=== PATIENT | female | born 1950 | race Caucasian/White ===

== ENCOUNTER 2016-08-24 16:51 | Emergency (ER) | payer MEDICARE ==
[~2016-08-24] VITALS: Ht 152.4 cm; Wt 55.8 kg
[2016-08-24] MEDS ORDERED: LORazepam INJ 2 MG/ML (ATIVAN) VIAL ONE (16:53)
[2016-08-24] MEDS ORDERED: PRAM0.252 PO (17:00)
[2016-08-24] MEDS ORDERED: FLUT1BLS IH (17:00)
[2016-08-24] MEDS ORDERED: OXYC-202 PO (17:00)
[2016-08-24] MEDS ORDERED: RANI150T15 PO (17:00)
[2016-08-24] MEDS ORDERED: FOLI0.8T PO (17:00)
[2016-08-24] MEDS ORDERED: LORA2VIA29 IJ (17:00)
[2016-08-24] MEDS ORDERED: ASPI-932 PO (17:00)
[2016-08-24] MEDS ORDERED: METH2.5T PO (17:00)
[2016-08-24] MEDS ORDERED: CARB300C2 PO (17:00)
[2016-08-24] MEDS ORDERED: LISI2.5T PO (17:00)
[2016-08-24] MEDS ORDERED: WARF-48 PO (17:00)
[2016-08-24] MEDS ORDERED: TRAZ150T72 PO (17:00)
[2016-08-24] MEDS ORDERED: IPRA3AMP IH (17:00)
[2016-08-24] MEDS ORDERED: DEXAMETHASONE PF 10 MG/ML (DECADRON) VIAL ONE (17:04)
[2016-08-24] MEDS ORDERED: RT-ALBUTEROL/IPRATROPIUM 3 ML (DUONEB) VIAL ONE (17:04)
[2016-08-24] MEDS ORDERED: DEXAMETHASONE PF 10 MG/ML (DECADRON) VIAL INH STA (17:11)
[2016-08-24] MEDS ORDERED: DEXAMETHASONE 4 MG/ML SDV (DECADRON) IH ONE (17:15)
[2016-08-24] MEDS ORDERED: RT-ALBUTEROL/IPRATROPIUM 3 ML (DUONEB) VIAL INH ONE (17:15)
[2016-08-24] MEDS ORDERED: LORazepam INJ 2 MG/ML (ATIVAN) VIAL IVP ONE (17:15)
[2016-08-24] MEDS ORDERED: methylPREDNISolone 125 MG (Solu-MEDROL) VIAL IVP ONE (17:15)
--- NOTE | 2016-08-24 17:19 | ED Neurological Problem ---
General Chief Complaint: Neurological Problems Stated Complaint: SYNCOPE Nursing Triage Note: Patient had outpatient CT, after patient had a seizure and was lowered to floor by CT staff. patient lifted off floor into ER cot and transported to ED room 7. patient alert and talking on arrival of ER staff Nursing Sepsis Screen: No Definite Risk Source: spouse Exam Limitations: other (PT WITH SEIZURE ACTIVITY/POST-ICTAL) History of Present Illness Time seen by provider: 16:55 Initial Comments PT WAS IN XRAY DEPT, HAD JUST COMPLETED CT CHEST ANGIOGRAM FOR ONGOING PROBLEMS BREATHING--PT WITH COPD AND ARTIFICIAL HEART VALVE AND IS ON HOME O2 AT 2L/NC CONTINUOUSLY. ' AFTER CT WAS DONE, AND WAS BEING ESCORTED OUT OF CT ROOM, PT HAD A SEIZURE-- LASTED 1 MINUTE OR LESS--PT WAS ASSISTED TO THE FLOOR BY RADIOLOGY STAFF, AND NO INJURY OCCURRED PT HAS HAD IV CONTRAST BEFORE TODAY AND NOT HAD ANY PROBLEMS PT HAS A KNOWN SEIZURE DISORDER-- STATES LAST SEIZURE WAS IN MAY OR JUNE OF THIS YEAR. "HAD A BUNCH OF THEM THIS SPRING" AND WAS HOSPITALIZED FOR THEM AT [facility]. HE REPORTS THAT SHE HAD LOW CARBAMAZEPINE LEVELS AND DOSE WAS IN CREASED AND HAS NOT HAD ANY PROBLEMS SINCE THEN. HE REPORTS THAT THIS IS EXACTLY THE SAME HER REGULAR SEIZURES HE STATES THEY SEEM TO BE TRIGGERED BY STRESS. PT HAS BEEN STRESSED TODAY--HAD TO WAIT IN WAITING ROOM FOR CT, WAS GETTING ANXIOUS ABOUT WAITING, WANTING TO LEAVE AND NOT DO TEST, ETC. PT HAD HER FIRST VISIT WITH DR. SHELTON TODAY FOR COPD, HE GAVE HER A STEROID SHOT IN THE OFFICE AND GAVE PT RX FOR PREDNISONE, AND ORDERED CT CHEST ANGIOGRAM ER STAFF WAS CALLED TO ASSIST WITH PT, AND PT BROUGHT FROM XRAY DEPT TO ER BY ER STAFF PT WITH AUDIBLE EXPIRATORY WHEEZING--LAST NEB TREATMENT WAS 11:00 AM TODAY 1657--PT HAD A 30 SECOND SEIZURE--GENERALIZED, MOSTLY TONIC, MILDLY CLONIC SEIZURE. NO DROP IN O2 SAT PT TALKING AND ANSWERING A FEW QUESTIONS SHORTLY AFTER SEIZURE STOPPED, BUT SOMEWHAT CONFUSED TO PLACE, TIME, SITUATION. NO INCONTINENCE. REPORTS THAT PT HAD NOT EATEN LUNCH TODAY DUE TO DR. THOMAS PCP: 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 BUT NEITHER SERVICE IS OFFERED THERE ANYMORE,AND HAVE NOT ATTEMPTED TO ESTABLISH WITH NEW MOBILITY SCOOTER REPAIRER AT ALL, AND ONLY NOW ARE ESTABLISHING WITH NEW TELEPHONE LINES REPAIRER Allergies and Home Medications Allergies Coded Allergies: Latex, Natural Rubber (Verified Allergy, Unknown, 08/24/16) Penicillins (Verified Allergy, Unknown, 08/24/16) butorphanol (Verified Allergy, Unknown, 08/24/16) cefotaxime (Verified Allergy, Unknown, 08/24/16) diazepam (Verified Allergy, Unknown, 08/24/16) doxycycline (Verified Allergy, Unknown, 08/24/16) levofloxacin (Verified Allergy, Unknown, 08/24/16) sulfamethoxazole (Verified Allergy, Unknown, 08/24/16) trimethoprim (Verified Allergy, Unknown, 08/24/16) Home Medications Aspirin 325 Mg Tablet.dr, 325 MG PO, (Reported) Carbamazepine 300 Mg Cpmp.12hr, 300 MG PO, (Reported) Fluticasone/Vilanterol 1 Each Blst.w.dev, 1 EACH IH, (Reported) Folic Acid 0.8 Mg Tablet, 0.8 MG PO, (Reported) Ipratropium/Albuterol Sulfate 3 Ml Ampul.neb, 3 ML IH Q4H PRN for SHORTNESS OF BREATH, (Reported) Lisinopril 2.5 Mg Tablet, 2.5 MG PO DAILY, (Reported) Lorazepam 2 Mg/1 Ml Vial, 2 MG IJ, (Reported) Methotrexate Sodium 2.5 Mg Tablet, 2.5 MG PO, (Reported) Oxycodone HCl/Acetaminophen 1 Each Tablet, 1 EACH PO, (Reported) Pramipexole Di-HCl 0.25 Mg Tablet, 0.25 MG PO, (Reported) Ranitidine HCl 150 Mg Tablet, 150 MG PO, (Reported) Trazodone HCl 150 Mg Tablet, 150 MG PO, (Reported) Warfarin Sodium 5 Mg Tablet, 5 MG PO, (Reported) Constitutional: no symptoms reported Respiratory: see HPI, other (ONGOING PROBLEMS WITH BREATHING) Cardiovascular: no symptoms reported Musculoskeletal: no symptoms reported Psychiatric/Neurological: See HPI, Anxiety, Tonic Clonic Seizures Past Loylzun-Aaqnca-Cnxjzj Hx Patient Social History Alcohol Use: Denies Use Recreational Drug Use: No Smoking Status: Current Everyday Smoker (1 PPD) Type Used: Cigarettes Recent Foreign Travel: No Contact w/Someone Who Travel: No Recent Infectious Disease Expo: No Surgeries HX Surgeries: Yes (MITRAL VALVE REPLACEMENT; BILATERAL SHOULDER REPLACEMENT) Surgeries: Appendectomy, Cardiac, Gallbladder, Joint Replacement, Orthopedic, Valve Replacement Respiratory Hx Respiratory Disorders: Yes Respiratory Disorders: COPD Cardiovascular Hx Cardiac Disorders: Yes Cardiac Disorders: Hypertension Neurological Hx Neurological Disorders: Yes Neurological Disorders: Parkinson's Disease, Seizure Disorder 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 System : No 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 Genitourinary Hx Genitourinary Disorders: No Gastrointestinal Hx Gastrointestinal Disorders: Yes Gastrointestinal Disorders: Gastroesophageal Reflux Musculoskeletal Hx Musculoskeletal Disorders: Yes Musculoskeletal Disorders: Rheumatoid Arthritis Endocrine Hx Endocrine Disorders: No HEENT HX ENT Disorders: No Cancer Hx Cancer: No Psychosocial Hx Psychiatric Problems: Yes Behavioral Health Disorders: Sleep Difficulties, Anxiety Integumentary HX Skin/Integumentary Disorder: No Blood Transfusions Hx Blood Disorders: No Physical Exam Vital Signs Vital Sign - Last 12Hours 08/24/16 08/24/16 16:53 17:13 Temp 98.2 Pulse 84 Resp 14 B/P (MAP) 163/65 Pulse Ox 100 O2 Delivery Nasal Cannula O2 Flow Rate 2.00 Capillary Refill : Less Than 3 Seconds General Appearance: other (PT POST-ICTAL, DROWSY AND CONFUSED, BUT TALKING. SHORTLY AFTER ARRIVAL, PT HAD GENERALIZED TONIC-CLONIC SEIZURE, LASTING 30 SECONDS. ) HEENT: PERRL/EOMI Respiratory: respiratory distress (MILD), other (AUDIBLE EXPIRATORY WHEEZING) Cardiovascular: regular rate, rhythm, other (MECHANICAL VALVULAR CLICK) Gastrointestinal: non tender, soft Extremities: no pedal edema, normal capillary refill Neurologic/Psychiatric: other ( ABOVE--SEIZURE SHORTLY AFTER ARRIVAL. WHEN PT MORE RESPONSIVE AFTER BEING POST-ICTAL, SHE IS NEUROLOGICALLY INTACT) Crainal Nerves: normal speech, PERRL Motor/Sensory: no motor deficit, no sensory deficit Skin: normal color, warm/dry Progress/Results/Core Measures Results/Orders Lab Results Laboratory Tests Test 08/24/16 17:40 Range/Units White Blood Count 5.5 4.3-11.0 10^3/uL Red Blood Count 3.43 L 4.35-5.85 10^6/uL Hemoglobin 12.0 11.5-16.0 G/DL Hematocrit 36 35-52 % Mean Corpuscular Volume 106 H 80-99 FL Mean Corpuscular Hemoglobin 35 H 25-34 PG Mean Corpuscular Hemoglobin Concent 33 32-36 G/DL Red Cell Distribution Width 13.4 10.0-14.5 % Platelet Count 202 130-400 10^3/uL Mean Platelet Volume 9.6 7.4-10.4 FL Neutrophils (%) (Auto) 67 42-75 % Lymphocytes (%) (Auto) 20 12-44 % Monocytes (%) (Auto) 9 0-12 % Eosinophils (%) (Auto) 3 0-10 % Basophils (%) (Auto) 0 0-10 % Neutrophils # (Auto) 3.7 1.8-7.8 X 10^3 Lymphocytes # (Auto) 1.1 1.0-4.0 X 10^3 Monocytes # (Auto) 0.5 0.0-1.0 X 10^3 Eosinophils # (Auto) 0.2 0.0-0.3 10^3/uL Basophils # (Auto) 0.0 0.0-0.1 10^3/uL Prothrombin Time 22.3 H 12.2-14.7 SEC INR Comment 2.0 H 0.8-1.4 Activated Partial Thromboplast Time 45 H 24-35 SEC Sodium Level 139 135-145 MMOL/L Potassium Level 4.1 3.6-5.0 MMOL/L Chloride Level 102 98-107 MMOL/L Carbon Dioxide Level 26 21-32 MMOL/L Anion Gap 11 5-14 MMOL/L Blood Urea Nitrogen 29 H 7-18 MG/DL Creatinine 0.76 0.60-1.30 MG/DL Estimat Glomerular Filtration Rate > 60 BUN/Creatinine Ratio 38 Glucose Level 89 70-105 MG/DL Calcium Level 9.1 8.5-10.1 MG/DL Magnesium Level 1.6 L 1.8-2.4 MG/DL Total Bilirubin 0.2 0.1-1.0 MG/DL Aspartate Amino Transf (AST/SGOT) 27 5-34 U/L Alanine Aminotransferase (ALT/SGPT) 28 0-55 U/L Alkaline Phosphatase 96 40-136 U/L Total Creatine Kinase 163 29-168 U/L Total Protein 6.7 6.4-8.2 GM/DL Albumin 3.9 3.2-4.5 GM/DL TSH [place] Testing 1.19 0.35-4.94 UIU/ML Carbamazepine (Tegretol) Level 9.3 4.0-12.0 UG/ML My Orders Orders - GAUTAMBREANAA K DO Lorazepam Injection (Ativan Injection) (08/24/16 16:53) Methylprednisolone Sod Succ (Solu-Medrol (08/24/16 17:15) Lorazepam Injection (Ativan Injection) (08/24/16 17:15) Saline Lock/Iv-Start (08/24/16 17:04) O2 (08/24/16 17:04) Monitor-Rhythm Ecg Trace Only (08/24/16 17:04) Carbamazepine (Tegretol) (08/24/16 17:04) Cbc With Automated Diff (08/24/16 17:04) Comprehensive Metabolic Panel (08/24/16 17:04) Creatine Kinase (08/24/16 17:04) Creatine Kinase Mb (08/24/16 17:04) Magnesium (08/24/16 17:04) Protime With Inr (08/24/16 17:04) Partial Thromboplastin Time (08/24/16 17:04) Thyroid Analyzer (08/24/16 17:04) Troponin I (08/24/16 17:04) Ua Culture If Indicated (08/24/16 17:04) Albuterol/Ipra Inhalation Soln (Duoneb I (08/24/16 17:15) Dexamethasone Injection (Decadron Inject (08/24/16 17:15) Rt Request For Service (08/24/16 17:04) Svn Sm Volume Nebulizer Rt-Rfs (08/24/16 17:04) Dexamethasone Pf Injection (Decadron Pf (08/24/16 17:04) Albuterol/Ipra Inhalation Soln (Duoneb I (08/24/16 17:04) Dexamethasone Pf Injection (Decadron Pf (08/24/16 17:11) Albuterol/Ipra Inhalation Soln (Duoneb I (08/24/16 17:25) Saline Lock/Iv-Start (08/24/16 17:55) Lactated Ringers (Lr 1000 Ml Iv Solution (08/24/16 17:55) Magnesium Oxide Tablet (Mag Ox Tablet) (08/24/16 18:30) Medications Given in ED Current Medications Medications Dose Ordered Sig/Renuka Route Start Time Stop Time Status Last Admin Dose Admin Albuterol/ Ipratropium 3 ml ONCE ONCE INH 08/24/16 17:15 08/24/16 17:16 DC 08/24/16 17:11 3 ML Dexamethasone Sodium Phosphate 10 mg STK-MED ONCE .ROUTE 08/24/16 17:04 08/24/16 17:11 DC 08/24/16 17:12 20 MG Lactated Ringer's 1,000 ml @ 0 mls/hr Q0M ONCE IV 08/24/16 17:55 08/24/16 17:56 DC 08/24/16 18:01 0 MLS/HR Lorazepam 2 mg STK-MED ONCE .ROUTE 08/24/16 16:53 08/24/16 16:59 DC 08/24/16 17:07 1 MG Methylprednisolone Sodium Succinate 125 mg ONCE ONCE IVP 08/24/16 17:15 08/24/16 17:16 DC 08/24/16 17:12 125 MG Vital Signs/I&O Vital Sign - Last 12Hours 08/24/16 08/24/16 08/24/16 16:53 17:13 17:28 Temp 98.2 Pulse 84 Resp 14 B/P (MAP) 163/65 Pulse Ox 100 100 99 O2 Delivery Nasal Cannula Nasal Cannula Nasal Cannula O2 Flow Rate 2.00 2.00 Blood Pressure Mean: 97 Progress Note : Progress Note INCREASED AERATION AND NO LONGER WHEEZING AND NON-LABORED BREATHING AFTER NEB TREATMENTS O2 SATS 100% ON ROOM AIR ON ARRIVAL, AND REMAINED 99-100% ON 2L/NC PT SLEPT FOR MOST OF REMAINDER OF ER STAY-AFTER GIVEN ATIVAN PT ANXIOUS TO GO HOME. Diagnostic Imaging Comments REVIEWED CHEST ANGIOGRAM REPORT--NO ACUTE PROCESS, NO P.E. BILATERAL UPPER LOBE NON-SPECIFIC NODULES--3 MM AND 5 MM, ALSO SMALL RIGHT UPPER LOBE ENDOBRONCHIAL LESION--MASS VS SECRETIONS--PER RADIOLOGIST REPORT Reviewed: Reviewed by Me Departure Communication Progress Notes 1706--ATTEMPTING TO CONTACT DR. SHELTON, MESSAGE LEFT ON CELL PHONE 1750--ATTEMPTING TO CONTACT DR. SHELTON, MESSAGE LEFT ON CELL PHONE Impression Impression: Primary Impression: SEIZURE WITH LONG STANDING SEIZURE DISORDER Additional Impressions: COPD (chronic obstructive pulmonary disease) Hypomagnesemia Disposition: HOME, SELF-CARE Condition: Stable Departure-Patient Inst. Referrals: REGINALD WHITLEY MD (PCP/Family) Primary Care Physician Patient Instructions: COPD Including Emphysema (DC), Seizures, Adult (DC) Add. Discharge Instructions: CONTINUE YOUR REGULAR MEDICATIONS PRESCRIBED FOLLOW UP WITH DR. SHELTON AND ANGI THIS WEEK FOR FURTHER CARE RETURN TO ER IF SYMPTOMS WORSEN All discharge instructions reviewed with patient and/or family. Voiced understanding. Scripts Magnesium Oxide (Magnesium Oxide) 400 Mg Tablet 400 MG PO DAILY, #10 TAB Prov: MITCH FLOREZ DO 08/24/16 MITCH FLOREZ DO Aug 24, 2016 17:19
[2016-08-24] MEDS ORDERED: RT-ALBUTEROL/IPRATROPIUM 3 ML (DUONEB) VIAL INH STA (17:25)
[2016-08-24 17:45] LABS: BASOPHILS % (AUTO) 0 % (0-10); EOSINOPHILS # (AUTO) 0.2 10^3/uL (0.0-0.3); EOSINOPHILS % (AUTO) 3 % (0-10); LYMPHOCYTES # (AUTO) 1.1 X 10^3 (1.0-4.0); LYMPHOCYTES % (AUTO) 20 % (12-44); MEAN CORPUSCULAR HEMOGLOBIN 35 PG (25-34); MEAN CORPUSCULAR HGB CONC 33 G/DL (32-36); MEAN CORPUSCULAR VOLUME 106 FL (80-99); MEAN PLATELET VOLUME 9.6 FL (7.4-10.4); MONOCYTES # (AUTO) 0.5 X 10^3 (0.0-1.0); MONOCYTES % (AUTO) 9 % (0-12); NEUTROPHILS # (AUTO) 3.7 X 10^3 (1.8-7.8); NEUTROPHILS % (AUTO) 67 % (42-75); PLATELET COUNT 202 10^3/uL (130-400); RED BLOOD COUNT 3.43 10^6/uL (4.35-5.85); RED CELL DISTRIBUTION WIDTH 13.4 % (10.0-14.5); WHITE BLOOD COUNT 5.5 10^3/uL (4.3-11.0)
[2016-08-24 17:55] LABS: PROTHROMBIN TIME PATIENT 22.3 SEC (12.2-14.7)
[2016-08-24] MEDS ORDERED: LACTATED RINGERS 1,000 ML IV ONE (17:55)
[2016-08-24 18:05] LABS: ALANINE AMINOTRANSFERASE 28 U/L (0-55); ALBUMIN 3.9 GM/DL (3.2-4.5); ANION GAP 11 MMOL/L (5-14); ASPARTATE AMINO TRANSFERASE 27 U/L (5-34); BILIRUBIN,TOTAL 0.2 MG/DL (0.1-1.0); BLOOD UREA NITROGEN 29 MG/DL (7-18); BUN/CREATININE RATIO 38; CALCIUM 9.1 MG/DL (8.5-10.1); CARBON DIOXIDE 26 MMOL/L (21-32); CHLORIDE 102 MMOL/L (98-107); CREATINE KINASE 163 U/L (29-168); CREATININE SERUM 0.76 MG/DL (0.60-1.30); GFR ESTIMATED > 60; GLUCOSE 89 MG/DL (70-105); MAGNESIUM 1.6 MG/DL (1.8-2.4); POTASSIUM 4.1 MMOL/L (3.6-5.0); SODIUM 139 MMOL/L (135-145); TOTAL PROTEIN 6.7 GM/DL (6.4-8.2)
[2016-08-24 18:25] LABS: CARBAMAZEPINE (TEGRETOL) 9.3 UG/ML (4.0-12.0); TROPONIN I < 0.30 NG/ML (<0.30)
[2016-08-24] MEDS ORDERED: MAGN400T6 PO (18:28)
[2016-08-24] MEDS ORDERED: MAGNESIUM OXIDE (MAG-OX)400 MG TAB PO ONE (18:30)
[2016-08-24 19:12] VITALS: BP 114/50
== END 2016-08-24 19:11 | disposition home or self-care (01) ==
LOC: EDUNIT# 16:51 → ER 16:52
DX: G40.909 Epilepsy, unspecified, not intractable, without status epilepticus (principal); J44.9 Chronic obstructive pulmonary disease, unspecified; E83.42 Hypomagnesemia; F41.9 Anxiety disorder, unspecified; K21.9 Gastro-esophageal reflux disease without esophagitis; G20 Parkinson's disease; I10 Essential (primary) hypertension; F17.210 Nicotine dependence, cigarettes, uncomplicated; Z79.01 Long term (current) use of anticoagulants; Z79.82 Long term (current) use of aspirin; Z95.2 Presence of prosthetic heart valve
CPT/HCPCS: 36415; 80053; 80156; 82550; 82553; 83735; 84443; 84484; 85025; 85610; 85730; 93041; 94640; 96361; 96374; 96375

== ENCOUNTER → 2016-08-24 | Outpatient (CLI) | payer MEDICARE, OTHER ==
[~2016-08-24] MED LIST: ASPI-932 PO; CARB300C10 PO; CARB300C2 PO; CATHETER FLUSH 10 ML SYR IV PRN; DIAZ2.5K RC; ENOX60DI7 SQ; FLUT1BLS IH; FOLI0.8T PO; FURO40TA4 PO; IOHEXOL 350 MG/ML 150 ML (OMNIPAQUE 350) VIAL IV ONE; IPRA3AMP IH; LEVE500T99 PO; LISI2.5T PO; LORA2TAB PO; LORA2VIA29 IJ; MAGN400T6 PO; METH2.5T PO; MIRT15TA6 PO; MIRT15TA8 PO; MORP-33 PO; NS 100 ML (IVPB) BAG IV ONE; ONDA4TAB11 BC; ONDN4T PO; OXYC-202 PO; OXYC-465 PO; PRAM0.252 PO; PRAM0.257 PO; PRED10TA22 PO; RANI150T15 PO; RANI150T90 PO; TRAZ150T72 PO; WARF-48 PO
[2016-08-24 15:56] LABS: BASOPHILS % (AUTO) 0 % (0-10); EOSINOPHILS # (AUTO) 0.2 10^3/uL (0.0-0.3); EOSINOPHILS % (AUTO) 5 % (0-10); LYMPHOCYTES % (AUTO) 23 % (12-44); MEAN CORPUSCULAR HEMOGLOBIN 35 PG (25-34); MEAN CORPUSCULAR HGB CONC 34 G/DL (32-36); MEAN CORPUSCULAR VOLUME 104 FL (80-99); MEAN PLATELET VOLUME 9.9 FL (7.4-10.4); MONOCYTES # (AUTO) 0.5 X 10^3 (0.0-1.0); MONOCYTES % (AUTO) 10 % (0-12); NEUTROPHILS # (AUTO) 2.8 X 10^3 (1.8-7.8); NEUTROPHILS % (AUTO) 62 % (42-75); PLATELET COUNT 247 10^3/uL (130-400); RED CELL DISTRIBUTION WIDTH 13.5 % (10.0-14.5); WHITE BLOOD COUNT 4.5 10^3/uL (4.3-11.0)
[2016-08-24 16:06] LABS: BAND NEUTROPHILS 0 %; BASOPHILS % (MANUAL) 1 %; EOSINOPHILS % (MANUAL) 6 %; LYMPHOCYTES % (MANUAL) 30 %; NEUTROPHILS % (MANUAL) 61 %
[2016-08-24 16:10] LABS: ALANINE AMINOTRANSFERASE 29 U/L (0-55); ALBUMIN 4.1 GM/DL (3.2-4.5); ANION GAP 9 MMOL/L (5-14); ASPARTATE AMINO TRANSFERASE 27 U/L (5-34); BILIRUBIN,TOTAL 0.2 MG/DL (0.1-1.0); BLOOD UREA NITROGEN 31 MG/DL (7-18); BUN/CREATININE RATIO 41; CALCIUM 9.4 MG/DL (8.5-10.1); CARBON DIOXIDE 29 MMOL/L (21-32); CHLORIDE 104 MMOL/L (98-107); CREATININE SERUM 0.75 MG/DL (0.60-1.30); GFR ESTIMATED > 60; GLUCOSE 83 MG/DL (70-105); POTASSIUM 4.4 MMOL/L (3.6-5.0); SODIUM 142 MMOL/L (135-145); TOTAL PROTEIN 7.2 GM/DL (6.4-8.2)
--- NOTE | 2016-08-24 17:28 | Diagnostic Imaging Report ---
PROCEDURE: CT angiography of the chest with contrast. TECHNIQUE: Multiple contiguous axial images were obtained through the chest after uneventful bolus administration of intravenous contrast. Reconstructed CTA MIP acquisitions were also performed. INDICATION: Hemoptysis. Shortness of air. COMPARISON: None. FINDINGS: No pulmonary emboli. No thoracic aortic aneurysm or dissection. Moderate arterial calcifications. Sternotomy. Mitral valve prosthesis. No mediastinal, hilar, or axillary lymphadenopathy. Endobronchial lesion in the distal right upper lobe bronchus measuring approximately 5 mm is nonocclusive (series 4, image 48). A 5 mm pulmonary nodule in the right lung apex. A 3 mm pulmonary nodule in the posterior left upper lobe. The lungs are clear. No pleural or pericardial effusion. No pneumothorax. Tunneled right subclavian port CVC. Moderate degenerative changes in the thoracic spine. Bilateral TSAs. The visualized upper abdominal contents are unremarkable. IMPRESSION: 1. No pulmonary emboli. No thoracic aortic dissection or aneurysm. 2. Nonspecific endobronchial lesion in the distal right upper lobe bronchus. This could represent mass versus secretions. This could be better evaluated with endoscopy. 3. A 5 mm pulmonary nodule in the right lung apex. A 3 mm pulmonary nodule in the posterior left upper lobe. Recommend followup chest CT in 12 months. Dictated by: Dictated on workstation # [id number]
== END ==
LOC: RAD 15:36
PROVIDERS: ATTEND Nurse Practitioner Family
DX: R91.8 Other nonspecific abnormal finding of lung field (principal); J45.909 Unspecified asthma, uncomplicated; R04.2 Hemoptysis
CPT/HCPCS: 36415; 71275; 80053; 85007; 85027; 87070; 87186; 87205

== ENCOUNTER 2016-08-30 12:09 | Outpatient (CLI) | payer MEDICARE ==
[~2016-08-30] VITALS: Ht 152.4 cm; Wt 55.8 kg
[~2016-08-30 12:09] MED LIST changes: -CARB300C10 PO; -CATHETER FLUSH 10 ML SYR IV PRN; -DIAZ2.5K RC; -ENOX60DI7 SQ; -FURO40TA4 PO; -IOHEXOL 350 MG/ML 150 ML (OMNIPAQUE 350) VIAL IV ONE; -LEVE500T99 PO; -LORA2TAB PO; -MIRT15TA6 PO; -MIRT15TA8 PO; -MORP-33 PO; -NS 100 ML (IVPB) BAG IV ONE; -ONDA4TAB11 BC; -ONDN4T PO; -OXYC-465 PO; -PRAM0.257 PO; -PRED10TA22 PO; -RANI150T90 PO
[2016-08-30] MEDS ORDERED: WARF-48 PO (16:08)
[2016-08-30] MEDS ORDERED: IPRA3AMP IH (16:08)
[2016-08-30] MEDS ORDERED: ONDN4T PO (16:08)
[2016-08-30] MEDS ORDERED: FLUT1BLS IH (16:08)
[2016-08-30] MEDS ORDERED: LISI2.5T PO (16:08)
[2016-08-30] MEDS ORDERED: LORA2TAB PO (16:08)
[2016-08-30] MEDS ORDERED: CARB300C10 PO (16:08)
[2016-08-30] MEDS ORDERED: PRAM0.252 PO (16:08)
[2016-08-30] MEDS ORDERED: METH2.5T PO (16:08)
[2016-08-30] MEDS ORDERED: TRAZ150T72 PO (16:08)
[2016-08-30] MEDS ORDERED: MIRT15TA8 PO (16:08)
[2016-08-30] MEDS ORDERED: RANI150T90 PO (16:08)
[2016-09-01] MEDS ORDERED: OXYC-465 PO (07:13)
[2016-09-01] MEDS ORDERED: MIRT15TA6 PO (11:06)
[2016-09-01] MEDS ORDERED: MORP-33 PO (11:06)
[2016-09-01] MEDS ORDERED: PRAM0.257 PO (11:06)
[2016-09-01] MEDS ORDERED: FURO40TA4 PO (11:06)
[2016-09-01] MEDS ORDERED: ENOX60DI7 SQ (11:20)
[2016-09-01] MEDS ORDERED: MAGN400T6 PO (11:20)
[2016-09-01] MEDS ORDERED: PRED10TA22 PO (11:20)
[2016-09-01] MEDS ORDERED: ONDA4TAB11 BC (11:22)
[2016-09-01] MEDS ORDERED: WARF-48 PO (16:20)
== END 2016-08-30 16:11 ==
LOC: PREOP 12:09
PROVIDERS: ATTEND Orthopaedic Surgery
DX: Z01.818 Encounter for other preprocedural examination (principal); R91.8 Other nonspecific abnormal finding of lung field; R04.2 Hemoptysis

== ENCOUNTER → 2016-09-14 | Outpatient (CLI) | payer MEDICARE, OTHER ==
[~2016-09-14] MED LIST changes: +CARB300C10 PO; +DIAZ2.5K RC; +ENOX60DI7 SQ; +FURO40TA4 PO; +LEVE500T99 PO; +LORA2TAB PO; +MIRT15TA6 PO; +MIRT15TA8 PO; +MORP-33 PO; +ONDA4TAB11 BC; +ONDN4T PO; +OXYC-465 PO; +PRAM0.257 PO; +PRED10TA22 PO; +RANI150T90 PO
--- NOTE | 2016-09-15 09:09 | Diagnostic Imaging Report ---
EXAMINATION: PET-CT TECHNIQUE: Serum glucose level at the time of the study is: 103 mg/dL. 12.5 mCi of FDG was administered intravenously followed by obtaining PET images with corresponding noncontrast CT scan images. The CT scan was performed for anatomic correlation and attenuation correction and was not performed according to the diagnostic protocol of the areas covered. The scan was performed from the head to mid thighs. INDICATION: Squamous cell carcinoma. FINDINGS: There is an area of asymmetric decreased FDG uptake in the left parietal region with abnormal CT scan finding in favor of an old infarct. There is mild hypermetabolism seen within the right maxillary sinus with a soft tissue lesion noted. An ENT evaluation is recommended. This could be related to sinusitis, polyp or neoplasm. The endobronchial lesion seen on CT scan is too small for accurate PET/CT assessment with no significant hypermetabolism seen in the chest, lungs, the bronchi, within the lungs or in the lymph node stations. In the abdomen and pelvis, there is excretion of the tracer in the urinary tract with no suspicious hypermetabolic mass identified. IMPRESSION: 1. Mild hypermetabolism and soft tissue thickening along the right maxillary sinus. ENT evaluation is recommended. The findings are nonspecific and differential includes sinusitis, polyp or neoplasm. 2. No hypermetabolic lesion is seen in the chest to correspond with the endobronchial lesion, probably related to its small size. No evidence of metastatic disease. 3. Decreased uptake in the left parietal region in the brain is probably secondary to an old infarct. MRI can better evaluate if needed. Dictated by: Dictated on workstation # [id number]
== END ==
LOC: CARD 09:55
PROVIDERS: ATTEND Internal Medicine Critical Care Medicine
DX: C34.90 Malignant neoplasm of unspecified part of unspecified bronchus or lung (principal)

== ENCOUNTER 2016-11-03 15:11 | Outpatient (RCR) | payer MEDICARE, OTHER | END 2016-11-06 | disposition home or self-care (01) | LOC: ONC 15:11 | PROVIDERS: ATTEND Internal Medicine Hematology & Oncology | DX: Z51.0 Encounter for antineoplastic radiation therapy (principal); C34.11 Malignant neoplasm of upper lobe, right bronchus or lung; J44.9 Chronic obstructive pulmonary disease, unspecified; F17.210 Nicotine dependence, cigarettes, uncomplicated; F41.9 Anxiety disorder, unspecified; D64.9 Anemia, unspecified; I11.0 Hypertensive heart disease with heart failure; I50.9 Heart failure, unspecified; G40.909 Epilepsy, unspecified, not intractable, without status epilepticus; M06.9 Rheumatoid arthritis, unspecified; Z79.899 Other long term (current) drug therapy; Z99.81 Dependence on supplemental oxygen; Z95.2 Presence of prosthetic heart valve | CPT/HCPCS: 77290; 77295; 77300; 77307; 77334; 77336; 77417; 99214 ==

== ENCOUNTER → 2017-01-21 | Outpatient (CLI) | payer MEDICARE, OTHER ==
[~2017-01-21] MED LIST changes: +CATHETER FLUSH 10 ML SYR IV PRN; +IOHEXOL 350 MG/ML 100 ML (OMNIPAQUE 350) VIAL IV ONE; +NS 100 ML (IVPB) BAG IV ONE
--- NOTE | 2017-01-21 13:11 | Diagnostic Imaging Report ---
PROCEDURE: CT chest and abdomen with contrast. TECHNIQUE: Multiple contiguous axial images were obtained through the chest and abdomen after the administration of intravenous contrast. INDICATION: Lung cancer surveillance. Comparison with PET CT from 09/14/2016. FINDINGS: The endobronchial density noted in the right upper lobe bronchus on CT angiography exam of 08/24/2016 is not present today. Bronchi are widely patent. The lungs are well-aerated. There are no infiltrates present. No masses are demonstrated. No mediastinal or hilar adenopathy of pathologic size. No pleural effusions or pericardial effusion. There is a good opacification of the aorta and pulmonary arteries. No evidence of aortic aneurysm. Mild calcification in coronary arteries with median sternotomy changes noted. Prosthetic mitral valve noted. Port-A-Cath is present on the right good position No bony lesions are demonstrated. IMPRESSION: No parenchymal masses or endobronchial lesions have developed. No evidence of adenopathy. CT ABDOMEN AND PELVIS: Liver parenchyma appears normal. There is mild hepatomegaly. Gallbladder is absent. Bile ducts are not dilated. The pancreas is normal. There is mild splenomegaly. The adrenal glands are not enlarged. The kidneys appear normal. There is normal enhancement of the abdominal organs and vessels following IV contrast. Aorta is atherosclerotic without evidence of aneurysm. Oral contrast is present in the stomach and proximal small bowel. The bowel is not distended. There is a large amount of stool in the colon consistent with constipation. No intra-abdominal adenopathy is demonstrated. No bony lesions are seen. IMPRESSION: 1. Hepatosplenomegaly. 2. Atherosclerotic change of the aorta. 3. Constipation. 4. No findings are seen to indicate metastatic disease. Dictated by: Dictated on workstation # [id number]
--- NOTE | 2017-01-21 16:05 | Diagnostic Imaging Report ---
INDICATION: History of lung CA. Seizures and falls. TECHNIQUE: 26 mCi of technetium 99M MDP IV was given. Delayed whole body images were performed as well as small field views of the ribs and skull. FINDINGS: There is normal uptake throughout the skeletal system. There is slight increased uptake at the sternomanubrial junction. There is also increased uptake within the lateral compartment of the right knee and the patellofemoral joint of the left knee. No other focal areas of abnormal activity are demonstrated. IMPRESSION: Findings are consistent with degenerative disease as described. There is no evidence of abnormal uptake in a pattern that would suggest metastatic disease. No rib abnormality is demonstrated. Dictated by: Dictated on workstation # [id number]
== END ==
LOC: RAD 11:28
PROVIDERS: ATTEND Internal Medicine Hematology & Oncology
DX: C34.90 Malignant neoplasm of unspecified part of unspecified bronchus or lung (principal); I70.0 Atherosclerosis of aorta; K59.00 Constipation, unspecified; R16.2 Hepatomegaly with splenomegaly, not elsewhere classified; R56.9 Unspecified convulsions; R29.6 Repeated falls; Z92.3 Personal history of irradiation
CPT/HCPCS: 71260; 74160; 78306

== ENCOUNTER 2017-01-26 13:17 | Outpatient (RCR) | payer MEDICARE, OTHER ==
[2017-01-21 11:20] LABS: BASOPHILS % (AUTO) 0 % (0-10); EOSINOPHILS # (AUTO) 0.2 10^3/uL (0.0-0.3); EOSINOPHILS % (AUTO) 4 % (0-10); HEMATOCRIT 34 % (35-52); HEMOGLOBIN 11.2 G/DL (11.5-16.0); LYMPHOCYTES # (AUTO) 0.5 X 10^3 (1.0-4.0); LYMPHOCYTES % (AUTO) 10 % (12-44); MEAN CORPUSCULAR HEMOGLOBIN 36 PG (25-34); MEAN CORPUSCULAR HGB CONC 33 G/DL (32-36); MEAN CORPUSCULAR VOLUME 107 FL (80-99); MEAN PLATELET VOLUME 9.1 FL (7.4-10.4); MONOCYTES # (AUTO) 0.3 X 10^3 (0.0-1.0); MONOCYTES % (AUTO) 6 % (0-12); NEUTROPHILS % (AUTO) 80 % (42-75); PLATELET COUNT 239 10^3/uL (130-400); RED BLOOD COUNT 3.14 10^6/uL (4.35-5.85); RED CELL DISTRIBUTION WIDTH 12.7 % (10.0-14.5); WHITE BLOOD COUNT 4.9 10^3/uL (4.3-11.0)
[2017-01-21 11:44] LABS: ALANINE AMINOTRANSFERASE 42 U/L (0-55); ALKALINE PHOSPHATASE 127 U/L (40-136); BILIRUBIN,TOTAL 0.1 MG/DL (0.1-1.0); BUN/CREATININE RATIO 51; CALCIUM 9.2 MG/DL (8.5-10.1); CARBON DIOXIDE 28 MMOL/L (21-32); CHLORIDE 103 MMOL/L (98-107); CREATININE SERUM 0.74 MG/DL (0.60-1.30); GFR ESTIMATED > 60; GLUCOSE 92 MG/DL (70-105); POTASSIUM 4.3 MMOL/L (3.6-5.0); SODIUM 140 MMOL/L (135-145)
[~2017-01-26 13:17] MED LIST changes: -CATHETER FLUSH 10 ML SYR IV PRN; -IOHEXOL 350 MG/ML 100 ML (OMNIPAQUE 350) VIAL IV ONE; -NS 100 ML (IVPB) BAG IV ONE
== END 2017-02-06 | disposition home or self-care (01) ==
LOC: ONC 13:17
PROVIDERS: ATTEND Internal Medicine Hematology & Oncology
DX: Z51.0 Encounter for antineoplastic radiation therapy (principal); C34.11 Malignant neoplasm of upper lobe, right bronchus or lung; J44.9 Chronic obstructive pulmonary disease, unspecified; F17.210 Nicotine dependence, cigarettes, uncomplicated; F41.9 Anxiety disorder, unspecified; D64.9 Anemia, unspecified; I11.0 Hypertensive heart disease with heart failure; I50.9 Heart failure, unspecified; G40.909 Epilepsy, unspecified, not intractable, without status epilepticus; M06.9 Rheumatoid arthritis, unspecified; Z79.899 Other long term (current) drug therapy; Z99.81 Dependence on supplemental oxygen; Z95.2 Presence of prosthetic heart valve
CPT/HCPCS: 36415; 77307; 77334; 77336; 77417; 80053; 85025; 99213

== ENCOUNTER 2017-03-10 12:45 | Outpatient (CLI) | payer MEDICARE, OTHER ==
[~2017-03-10] VITALS: Ht 152.4 cm; Wt 58.1 kg
[2017-03-10] MEDS ORDERED: LORA2TAB PO (13:04)
== END 2017-03-10 13:14 ==
LOC: PREOP 12:45
PROVIDERS: ATTEND Internal Medicine Critical Care Medicine
DX: Z01.811 Encounter for preprocedural respiratory examination (principal); J44.9 Chronic obstructive pulmonary disease, unspecified; C34.90 Malignant neoplasm of unspecified part of unspecified bronchus or lung

== ENCOUNTER → 2017-10-07 | Outpatient (CLI) | payer MEDICARE, OTHER ==
[~2017-10-07] MED LIST changes: -CARB300C10 PO; +CARB300C9 PO; -IPRA3AMP IH; +IPRA3AMP31 IH; -LORA2VIA29 IJ; +LORA2VIA30 IJ; -METH2.5T PO; +MTX2.5T PO; -OXYC-202 PO; +OXYC1TAB12 PO; -RANI150T15 PO; +RANI150T46 PO
[2017-10-07] MEDS: NS 250 ML (IVPB) BAG IV ONE (15:17)
[2017-10-07] MEDS: IOHEXOL 350 MG/ML 100 ML (OMNIPAQUE 350) VIAL IV ONE (15:17)
[2017-10-07] MEDS: BARIUM SUSPENSION 2.1% (VANILLA SILQ) 450 ML PO ONE (15:17)
--- NOTE | 2017-10-07 16:34 | Diagnostic Imaging Report ---
INDICATION: History of COPD and lung cancer with radiation, now complaining of hoarseness. TECHNIQUE: Oral contrast media was administered. Abdominal CT obtained prior to IV contrast. Following IV contrast, CT evaluation of the neck, chest, abdomen and pelvis is performed. The chest and abdominal portions of the study correlated with contrast enhanced CTs of March 2016. Remaining levels can only be correlated with transmission nonenhanced CT obtained during metabolic PET imaging performed on 09/14/2016. FINDINGS: Neck: The vocal folds are held in apposition during images at the level of the larynx severely limiting their evaluation. They were anatomically and scintigraphically normal on the previous PET. There is no pathologically enlarged, morphologically distorted nor abnormally numerous cervical lymph nodes. Soft tissue-like density in the right maxillary sinus posteriorly is a redemonstrated finding and this extends through a surgical defect into the right nasal cavity posteriorly. This tissue is not convincingly changed from the previous metabolic exam where it showed low levels of metabolic activity. The postsurgical contralateral left maxillary sinus is clear and the partially visualized postsurgical ethmoids appeared clear. The sphenoid clear. The visualized intracranial structures unremarkable. Orbits above the cipio-qu-otor. The nasopharynx, oropharynx and hypopharynx are grossly unremarkable. The prevertebral and retropharyngeal spaces and lower cervical and upper thoracic trachea unremarkable. No bony destructive process. Chest: There are changes presumed to reflect post radiation fibrosis and pneumonitis in a paramediastinal distribution in the right lung at its upper, middle and superior segmental lower lobes. Its underlying parenchyma revealed no identifiable soft tissue mass. Thoracic trachea and its bifurcation widely patent. No pleural or pericardial effusion. No pathological appearing thoracic lymph nodes. Shoulders replaced. Previous sternotomy noted. No acute soft tissue or osseous chest wall pathology. No evidence for sternal dehiscence. Abdomen: Liver unremarkable. The spleen is mildly enlarged but nonfocal and unchanged from prior. There is no adrenal mass. The pancreas unremarkable. The kidneys unobstructed. There is no abdominal, mesenteric or retroperitoneal adenopathy. There is no ascites. There are chronic L5 spondylolysis defects with no acute-appearing bony abnormality. IMPRESSION: 1. Neck: Limited evaluation of the larynx owing to apposition of the vocal cords during scanning. No identifiable adenopathy or appreciable mass. No inflammatory process or fluid collection. 2. 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 3. Abdomen: Mild splenomegaly stable. No mass, adenopathy or change. Dictated by: Dictated on workstation # [id number]
== END ==
LOC: RAD 14:14
PROVIDERS: ATTEND Internal Medicine Hematology & Oncology
DX: C34.11 Malignant neoplasm of upper lobe, right bronchus or lung (principal); J44.9 Chronic obstructive pulmonary disease, unspecified; R16.1 Splenomegaly, not elsewhere classified; R49.0 Dysphonia
CPT/HCPCS: 70491; 71260; 74170

== ENCOUNTER 2017-10-17 13:54 | Outpatient (RCR) | payer MEDICARE, OTHER | END 2018-01-01 | disposition home or self-care (01) | LOC: ONC 13:54 | PROVIDERS: ATTEND Internal Medicine Hematology & Oncology | DX: Z08 Encounter for follow-up examination after completed treatment for malignant neoplasm (principal); Z85.118 Personal history of other malignant neoplasm of bronchus and lung; R49.0 Dysphonia; J44.9 Chronic obstructive pulmonary disease, unspecified; F17.210 Nicotine dependence, cigarettes, uncomplicated; F32.9 Major depressive disorder, single episode, unspecified; Z79.899 Other long term (current) drug therapy; Z95.2 Presence of prosthetic heart valve; Z79.01 Long term (current) use of anticoagulants; Z92.3 Personal history of irradiation; Z99.81 Dependence on supplemental oxygen | CPT/HCPCS: 99213 ==

== ENCOUNTER 2018-05-03 10:31 | Emergency (ER) | payer MEDICARE, OTHER ==
[~2018-05-03] VITALS: Ht 152.4 cm; Wt 61.2 kg
[~2018-05-03 10:31] MED LIST changes: +MIRT-47 PO; -MIRT15TA8 PO
[2018-05-03] MEDS ORDERED: fentaNYL INJECTION 100 MCG/2 ML AMP IVP ONE ×2 (10:45→13:30)
--- NOTE | 2018-05-03 10:48 | ED Lower Extremity ---
General Chief Complaint: Trauma-Non Activation Stated Complaint: FALL Nursing Triage Note: ARRIVED VIA EMS FROM HOME. PT KAREN SHE HAD A SEIZURE THEN FELL OFF HER PORCH AND LAID THERE APPX 1HR BEFORE HER DAUGHTER FOUND HER. COMPLAINS OF BILAT LOWER LEG PAIN WITH THE LEFT HURTING WORSE. Nursing Sepsis Screen: No Definite Risk History of Present Illness Date Seen by Provider: May 03, 2018 Time Seen by Provider: 10:42 Initial Comments Primary months after a fall she fell off her porch she may have had a seizure she is complaining of severe bilateral knee and upper jhaveri area pain she laid there for 1 hour before she was found patient's memory is somewhat limited she does not think she hit her head but she is not sure she does take Coumadin paramedics gave fentanyl. Severe nonradiating worse with movement fentanyl helped a little she is on home oxygen she says she's been coughing a little bit recently but otherwise pretty stable Allergies and Home Medications Allergies Coded Allergies: Latex, Natural Rubber (Verified Allergy, Unknown, 08/24/16) Penicillins (Verified Allergy, Unknown, 08/24/16) butorphanol (Verified Allergy, Unknown, Patient takes oxycodone/APAP at home, 09/01/16) cefotaxime (Verified Allergy, Unknown, 08/24/16) diazepam (Verified Allergy, Unknown, 08/24/16) doxycycline (Verified Allergy, Unknown, 08/24/16) levofloxacin (Verified Allergy, Unknown, 08/24/16) sulfamethoxazole (Verified Allergy, Unknown, 08/24/16) trimethoprim (Verified Allergy, Unknown, 08/24/16) Home Medications Aspirin 325 Mg Tablet.dr, 325 MG PO DAILY, (Reported) Carbamazepine 300 Mg Cpmp.12hr, 600 MG PO BID, (Reported) TAKES 2 (300 MG) TABLETS Fluticasone/Vilanterol 1 Each Blst.w.dev, 1 PUFF IH DAILY, (Reported) Folic Acid 0.8 Mg Tablet, 0.8 MG PO DAILY, (Reported) Levetiracetam 500 Mg Tablet, 500 MG PO BID Prescribed by: YORDY CHERY on 09/02/16 1028 Lisinopril 2.5 Mg Tablet, 2.5 MG PO DAILY, (Reported) Lorazepam 2 Mg Tablet, 2 MG PO TID, (Reported) Methotrexate Tablet 2.5 Mg Tablet, 15 MG PO EVERY 7 DAYS, (Reported) TAKES 6 (2.5 MG) TABLETS Mirtazapine 15 Mg Tablet, 15 MG PO HS, (Reported) Ondansetron 4 Mg Tab.rapdis, 4 MG BC Q8H PRN for NAUSEA/VOMITING-1ST LINE, ( Reported) Oxycodone HCl/Acetaminophen 1 Each Tablet, 1 TAB PO Q4H PRN for PAIN-SEVERE, ( Reported) Pramipexole Di-HCl 0.25 Mg Tablet, 0.25 MG PO HS, (Reported) Ranitidine HCl 150 Mg Tablet, 150 MG PO BID, (Reported) Trazodone HCl 150 Mg Tablet, 150 MG PO HS, (Reported) Warfarin Sodium 5 Mg Tablet, 10 MG PO MoTuWeThFr, (Reported) TAKES 2 (5 MG) TABLETS Warfarin Sodium 5 Mg Tablet, 5 MG PO SuSa, (Reported) Patient Home Medication List Home Medication List Reviewed: Yes Review of Systems Constitutional: no symptoms reported EENTM: no symptoms reported Respiratory: cough, short of breath Past Dovzkke-Vjnlcg-Rbqqej Hx Patient Social History Alcohol Use: Denies Use Recreational Drug Use: No Smoking Status: Former Smoker Type Used: Cigarettes Recent Foreign Travel: No Contact w/Someone Who Travel: No Recent Infectious Disease Expo: No Recent Hopitalizations: Yes (APRIL-LUNG INFECTION) Immunizations Up To Date Tetanus Booster (TDap): Unknown Date of Pneumonia Vaccine: May 24, 2016 Date of Influenza Vaccine: Nov 22, 2016 Seasonal Allergies Seasonal Allergies: No Past Medical History Surgeries: Yes (MITRAL VALVE REPLACEMENT; BILATERAL SHOULDER REPLACEMENT) Adenoidectomy, Appendectomy, Cardiac, Gallbladder, Tonsillectomy, Valve Replacement Respiratory: Yes (02 2L) COPD Currently Using CPAP: No Currently Using BIPAP: No Cardiac: Yes (MITRAL VALVE REPLACEMENT) Hypertension, Valvular Heart Disease Neurological: Yes Parkinson's Disease, Seizure Disorder, TIA 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 Disorders: No Female 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 Disorders: Denies 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 Sexually Transmitted Disease: No HIV/AIDS: No Genitourinary: No Gastrointestinal: Yes Gastroesophageal Reflux, Chronic Constipation Musculoskeletal: Yes Rheumatoid Arthritis Endocrine: No HEENT: No Loss of Vision: Bilateral Hearing Impairment: Denies Cancer: No Lung Psychosocial: Yes Sleep Difficulties, Anxiety Integumentary: No Blood Disorders: No Adverse Reaction/Blood Tranf: No Physical Exam Vital Signs Vital Signs - First Documented 05/03/18 05/03/18 10:31 13:24 Temp 98.0 Pulse 109 Resp 20 B/P (MAP) 146/81 (102) Pulse Ox 99 O2 Delivery Room Air O2 Flow Rate 3.00 Capillary Refill : Less Than 3 Seconds Height, Weight, BMI Height: 5'0.00" Weight: 135lbs. 2.0oz. 61.652048yw; 25.0 BMI Method:Stated General Appearance: moderate distress HEENT: PERRL/EOMI, normal ENT inspection, other (Right periorbital area there is ecchymosis that appears old) Neck: non-tender, full range of motion, supple Cardiovascular: regular rate, rhythm, no edema, no gallop Respiratory: chest non-tender, lungs clear, other (Course breath sounds on the right side) Gastrointestinal: non tender, soft Back: normal inspection, no CVA tenderness Legs: bilateral leg other (Bilateral tibial plateau swelling tenderness ecchymosis distal pulses are intact distal movement of the ankle and toes are intact pelvis is stable) Neurologic/Tendon: normal sensation, normal motor functions Neurologic/Psychiatric: no motor/sensory deficits, alert, normal mood/affect, oriented x 3 Skin: normal color, warm/dry, ecchymosis Progress/Results/Core Measures Results/Orders Lab Results Laboratory Tests Test 05/03/18 10:39 05/03/18 10:41 05/03/18 11:45 Range/Units Glucometer 130 H 70-110 MG/DL White Blood Count 11.4 H 4.3-11.0 10^3/uL Red Blood Count 3.20 L 4.35-5.85 10^6/uL Hemoglobin 11.4 L 11.5-16.0 G/DL Hematocrit 35 35-52 % Mean Corpuscular Volume 110 H 80-99 FL Mean Corpuscular Hemoglobin 36 H 25-34 PG Mean Corpuscular Hemoglobin Concent 32 32-36 G/DL Red Cell Distribution Width 14.6 H 10.0-14.5 % Platelet Count 333 130-400 10^3/uL Mean Platelet Volume 10.5 H 7.4-10.4 FL Prothrombin Time 25.8 H 12.2-14.7 SEC INR Comment 2.3 H 0.8-1.4 Sodium Level 141 135-145 MMOL/L Potassium Level 4.7 3.6-5.0 MMOL/L Chloride Level 99 98-107 MMOL/L Carbon Dioxide Level 23 21-32 MMOL/L Anion Gap 19 H 5-14 MMOL/L Blood Urea Nitrogen 21 H 7-18 MG/DL Creatinine 0.64 0.60-1.30 MG/DL Estimat Glomerular Filtration Rate > 60 BUN/Creatinine Ratio 33 Glucose Level 135 H 70-105 MG/DL Calcium Level 9.2 8.5-10.1 MG/DL Total Bilirubin 0.3 0.1-1.0 MG/DL Direct Bilirubin < 0.2 0.0-0.3 MG/DL Indirect Bilirubin 0.1 MG/DL Aspartate Amino Transf (AST/SGOT) 26 5-34 U/L Alanine Aminotransferase (ALT/SGPT) 22 0-55 U/L Alkaline Phosphatase 144 H 40-136 U/L Total Protein 7.4 6.4-8.2 GM/DL Albumin 4.6 H 3.2-4.5 GM/DL Serum Alcohol < 10 <10 MG/DL Urine Color YELLOW Urine Clarity CLEAR Urine pH 7.0 5-9 Urine Specific [place] 1.015 L 1.016-1.022 Urine Protein TRACE NEGATIVE Urine Glucose (UA) NEGATIVE NEGATIVE Urine Ketones NEGATIVE NEGATIVE Urine Nitrite NEGATIVE NEGATIVE Urine Bilirubin NEGATIVE NEGATIVE Urine Urobilinogen 0.2 NORMAL MG/DL Urine Leukocyte Esterase NEGATIVE NEGATIVE Urine RBC (Auto) TRACE H NEGATIVE Urine RBC 2-5 H /HPF Urine WBC 0-2 /HPF Urine Squamous Epithelial Cells 0-2 /HPF Urine Crystals NONE /LPF Urine Bacteria NEGATIVE /HPF Urine Casts PRESENT /LPF Urine Hyaline Casts 0-2 H /LPF Urine Mucus NONE /LPF Urine Culture Indicated NO My Orders Orders - SARI NELSON MD Cbc No Diff (05/03/18 10:35) Basic Metabolic Panel (05/03/18 10:35) Liver Panel (05/03/18 10:35) Alcohol (05/03/18 10:35) Ua Culture If Indicated (05/03/18 10:35) Type And Screen (05/03/18 10:35) Ct Head/Cervical Spine Wo (05/03/18 10:35) Chest 1 View Ap/Pa Only (05/03/18 10:35) Pelvis (Ap) (05/03/18 10:35) Ekg Tracing (05/03/18 10:35) Monitor-Rhythm Ecg Trace Only (05/03/18 10:35) Saline Lock/Iv-Start (05/03/18 10:35) Protime With Inr (05/03/18 10:35) Fentanyl Injection (Sublimaze Injection (05/03/18 10:45) Accucheck Stat ONCE (05/03/18 10:35) Knee 3 View Bilateral (05/03/18 10:35) Ns (Ivpb) (Sodium Chloride 0.9%) (05/03/18 11:00) Lorazepam Injection (Ativan Injection) (05/03/18 11:00) Creatine Kinase (05/03/18 10:41) Perez Cath (05/03/18 11:45) Morphine Pf Inj (Duramorph Pf Inj) (05/03/18 12:15) Ondansetron Injection (Zofran Injectio (05/03/18 12:15) Morphine Injection (Morphine Injection (05/03/18 12:13) Morphine Injection (Morphine Injection (05/03/18 12:15) Fentanyl Injection (Sublimaze Injection (05/03/18 13:30) Fentanyl Injection (Sublimaze Injection (05/03/18 13:17) Medications Given in ED Current Medications Medications Dose Ordered Sig/Renuka Route Start Time Stop Time Status Last Admin Dose Admin Fentanyl Citrate 50 mcg ONCE ONCE IVP 05/03/18 10:45 05/03/18 10:46 DC 05/03/18 10:43 50 MCG Fentanyl Citrate 50 mcg ONCE ONCE IVP 05/03/18 13:30 05/03/18 13:30 DC 05/03/18 13:22 50 MCG Lorazepam 0.5 mg ONCE PRN IVP 05/03/18 11:00 05/03/18 13:26 DC 05/03/18 10:57 0.5 MG Ondansetron HCl 4 mg ONCE ONCE IVP 05/03/18 12:15 05/03/18 12:16 DC 05/03/18 12:18 4 MG Sodium Chloride 500 ml @ 999 mls/hr Q31M ONCE IV 05/03/18 11:00 05/03/18 11:30 DC 05/03/18 11:39 999 MLS/HR Vital Signs/I&O 05/03/18 05/03/18 10:31 13:24 Temp 98.0 Pulse 109 84 Resp 20 16 B/P (MAP) 146/81 (102) 132/54 (80) Pulse Ox 99 98 O2 Delivery Room Air O2 Flow Rate 3.00 Blood Pressure Mean: 102 FSBG Bedside Testing Finger Stick Blood Glucose: 130 Blood Glucose Action Taken: reported to Dr nelson Progress Progress Note : Progress Note History of GERD and arthritis COPD on home oxygen on Coumadin seizure disorder presenting with fall off porch possible seizure bilateral apparent tibial plateau area pain and tenderness. Denies hitting head however there is old ecchymosis on the right periorbital area so we will get brain imaging given her Coumadin history blood sugar 1:30 fentanyl for pain. IMPRESSION: Bilateral proximal tibial and fibular fractures without evidence of displacement or angulation. Dictated on workstation # [id number] cthead/cspine and cxr were negative acute. patient has pulses present on examination I did reevaluate her in the emergency room as well she was having a lot of pain but was responding to narcotics. I did initially discuss with Dr. Hendricks at [facility] He felt given the complexity of the patient's past medical history and the need for multiple specialty consultations including probably neurology since she may have had a seizure and they don't have neurology there he recommended transfer to different hospital. Asked patient's family member with a preferred preferred job plan I spoke with Dr. GOLDSTEIN at [facility] who has accepted the patient in transfer, to the emergency room per their protocol. Patient remained stable while in the emergency room we did put bilateral knee immobilizers on the patient as well I noted this all to the family was in agreement. Comment poor baseline pt is shaking, the rate is 113 there are no acute ischemic changes noted very very poor baseline limits the evaluation significantly to the patient shaking no obvious STEMI Departure Impression Primary Impression: Fracture, tibia and fibula, proximal Disposition: 02 XFER SHT-TRM HOSP Condition: Stable Departure-Patient Inst. Referrals: REGINALD WHITLEY MD (PCP/Family) Primary Care Physician SARI NELSON MD May 03, 2018 10:47
--- NOTE | 2018-05-03 10:49 | NUR ---
PT SHAKING TO BAD FOR A EKG AT THIS TIME. NOTIFIED AND ALSO NOTIFIED SHE TAKES SOMETHING FOR ANXIETY AT NIGHT TIME.
[2018-05-03] MEDS ORDERED: NS (IVPB) 500 ML IV ONE (11:00)
[2018-05-03] MEDS ORDERED: LORazepam INJ 2 MG/ML (ATIVAN) VIAL IVP PRN (11:00)
[2018-05-03] MEDS ORDERED: LORazepam INJ 2 MG/ML (ATIVAN) VIAL IVP ONE (11:00)
[2018-05-03 11:03] LABS: HEMOGLOBIN 11.4 G/DL (11.5-16.0); WHITE BLOOD COUNT 11.4 10^3/uL (4.3-11.0)
[2018-05-03 11:04] LABS: MEAN PLATELET VOLUME 10.5 FL (7.4-10.4); RED CELL DISTRIBUTION WIDTH 14.6 % (10.0-14.5)
[2018-05-03 11:24] LABS: CARBON DIOXIDE 23 MMOL/L (21-32); CHLORIDE 99 MMOL/L (98-107); POTASSIUM 4.7 MMOL/L (3.6-5.0); SODIUM 141 MMOL/L (135-145)
[2018-05-03 11:25] LABS: ALANINE AMINOTRANSFERASE 22 U/L (0-55); ALBUMIN 4.6 GM/DL (3.2-4.5); ALKALINE PHOSPHATASE 144 U/L (40-136); BILIRUBIN,DIRECT < 0.2 MG/DL (0.0-0.3); BILIRUBIN,INDIRECT 0.1 MG/DL; BILIRUBIN,TOTAL 0.3 MG/DL (0.1-1.0); BUN/CREATININE RATIO 33; CALCIUM 9.2 MG/DL (8.5-10.1); CREATININE SERUM 0.64 MG/DL (0.60-1.30); GFR ESTIMATED > 60; GLUCOSE 135 MG/DL (70-105); TOTAL PROTEIN 7.4 GM/DL (6.4-8.2)
--- NOTE | 2018-05-03 11:42 | Diagnostic Imaging Report ---
INDICATION: Seizure and fall. TIME OF EXAMINATION: 10:47 AM. FINDINGS: An AP view of the pelvis shows normal femoroacetabular alignment. Both femoral heads and necks appear to be intact. The rami are intact. The SI joints and symphysis are not widened. No fractures are seen. IMPRESSION: No acute bony abnormality is detected. Dictated by: Dictated on workstation # [id number]
--- NOTE | 2018-05-03 11:42 | Diagnostic Imaging Report ---
INDICATION: Seizure and fall. TIME OF EXAMINATION: 10:49 AM. COMPARISON: 03/16/2017. FINDINGS: Prior changes of median sternotomy are noted. A right chest wall port has its tip overlying the SVC/right atrial junction. A right perihilar density appears similar to the prior exam. The remaining lung huynh are clear. No effusion or pneumothorax is seen. There are postop changes of the bilateral shoulders. IMPRESSION: Stable chest. No acute feature is detected. Dictated by: Dictated on workstation # [id number]
--- NOTE | 2018-05-03 11:43 | Diagnostic Imaging Report ---
INDICATION: Seizure and fall. TIME OF EXAM: 10:50 a.m. Multiple views of bilateral knees were obtained. FINDINGS: Fractures are identified bilaterally. Obliquely oriented fracture through the proximal diaphysis of the right tibia is seen without significant displacement or angulation. There is also fracture through the proximal right fibula, without evidence of displacement. Degenerative changes of the right knee are noted. On the left, a similar appearing fracture is present with comminuted fracture of the proximal tibia diaphysis. No significant displacement or angulation is seen. There also appears to be a nondisplaced fracture of the proximal fibula. Distal femora appear to be intact. IMPRESSION: Bilateral proximal tibial and fibular fractures without evidence of displacement or angulation. Dictated by: Dictated on workstation # [id number]
--- NOTE | 2018-05-03 11:47 | Diagnostic Imaging Report ---
PROCEDURE: CT head and CT cervical spine without contrast. TECHNIQUE: Multiple contiguous axial images were obtained through the brain and cervical spine without the use of intravenous contrast. Sagittal and coronal reformations through the cervical spine were then performed. Auto Exposure Controls were utilized during the CT exam to meet ALARA standards for radiation dose reduction. INDICATION: Seizure and fall. COMPARISON: Comparison is made with prior head CT from 09/01/2016. FINDINGS: CT HEAD: Ventricles and sulci are within normal limits. Encephalomalacia left frontal lobe and left posterior parietal lobe is similar to prior exam and consistent with prior infarcts. No sulcal effacement or midline shift is identified. No acute intra-axial or extra-axial hemorrhage is detected. The cisterns are patent. Nasal cavity and right maxillary sinus is again seen. IMPRESSION: Chronic changes. Overall appearance is similar to prior head CT from 09/01/2016. No acute intracranial process is detected. CT CERVICAL SPINE: Curvature and alignment is normal. No fracture or subluxation is seen. The prevertebral tissues are within normal limits. The odontoid is intact. IMPRESSION: No acute bony abnormality is detected. Dictated by: Dictated on workstation # [id number]
[2018-05-03 12:00] LABS: CLARITY,URINE CLEAR; COLOR,URINE YELLOW
[2018-05-03 12:01] LABS: BACTERIA,URINE NEGATIVE /HPF; BILIRUBIN,URINE NEGATIVE (NEGATIVE); GLUCOSE, URINE (UA) NEGATIVE (NEGATIVE); KETONES,URINE NEGATIVE (NEGATIVE); LEUKOCYTE ESTERASE ,URINE NEGATIVE (NEGATIVE); NITRITE,URINE NEGATIVE (NEGATIVE); PROTEIN,URINE TRACE (NEGATIVE); SQUAMOUS EPITHELIAL CELL,UR 0-2 /HPF; UROBILINOGEN,URINE 0.2 MG/DL (NORMAL); WBC,URINE 0-2 /HPF
[2018-05-03 12:02] LABS: HYALINE CASTS, URINE 0-2 /LPF
[2018-05-03 12:05] LABS: INR 2.3 (0.8-1.4); PROTHROMBIN TIME PATIENT 25.8 SEC (12.2-14.7)
--- NOTE | 2018-05-03 12:08 | NUR ---
SALON STYLIST ZAHIDA NOTIFIED OF NEEDING A ROOM AT [facility].
[2018-05-03] MEDS ORDERED: morphine INJ 10 MG/ML 1ML (SYR OR VIAL) IVP STA (12:13)
--- NOTE | 2018-05-03 12:13 | NUR ---
IN TALKING TO PT AT THIS TIME.
[2018-05-03] MEDS ORDERED: morphine INJ 10 MG/ML 1ML (SYR OR VIAL) ONE (12:15)
[2018-05-03] MEDS ORDERED: morphine PF (DURAMORPH) 10 MG/10 ML AMP IV ONE (12:15)
[2018-05-03] MEDS ORDERED: ONDANSETRON 4 MG/2 ML (SDV) Z0FRAN IVP ONE (12:15)
--- NOTE | 2018-05-03 12:31 | NUR ---
PT'S BILAT AREA BELOW THE KNEE REMAINS SWOLLEN ET TIGHT. CMS CHECK WNL AT THIS TIME
--- NOTE | 2018-05-03 12:37 | NUR ---
IN TALKING TO PT AT THIS TIME.
--- NOTE | 2018-05-03 13:00 | NUR ---
Note constance in EDM - 05/03/18 at 1308 by HALLIEA REPORT FROM [facility]. LAB SPOKE WITH REGARDING INABILITY TO DRAW A PERIPHERAL BLOOD CULTURE #2. NUMEROUS ATTEMPTS, LIMITATIONS WITH CAST ON L ARM.
[2018-05-03] MEDS ORDERED: fentaNYL INJECTION 100 MCG/2 ML AMP ONE (13:17)
[2018-05-03 13:24] VITALS: BP 132/54
== END 2018-05-03 13:26 | disposition short-term general hospital (02) ==
LOC: EDUNIT# 10:31 → ER FS 10:34
DX: S82.831A Other fracture of upper and lower end of right fibula, initial encounter for closed fracture (principal); S82.832A Other fracture of upper and lower end of left fibula, initial encounter for closed fracture; S82.101A Unspecified fracture of upper end of right tibia, initial encounter for closed fracture; S82.102A Unspecified fracture of upper end of left tibia, initial encounter for closed fracture; G40.909 Epilepsy, unspecified, not intractable, without status epilepticus; G20 Parkinson's disease; Z91.040 Latex allergy status; M06.9 Rheumatoid arthritis, unspecified; F41.9 Anxiety disorder, unspecified; Z87.19 Personal history of other diseases of the digestive system; Z88.0 Allergy status to penicillin; Z88.1 Allergy status to other antibiotic agents; Z88.2 Allergy status to sulfonamides; Z88.8 Allergy status to other drugs, medicaments and biological substances; Z79.82 Long term (current) use of aspirin; Z79.01 Long term (current) use of anticoagulants; Z87.891 Personal history of nicotine dependence; Z90.49 Acquired absence of other specified parts of digestive tract; Z90.89 Acquired absence of other organs; Z95.2 Presence of prosthetic heart valve; W17.89XA Other fall from one level to another, initial encounter
CPT/HCPCS: 36415; 51702; 70450; 71045; 72125; 72170; 80048; 80076; 80320; 81000; 82550; 82962; 85027; 85610; 93041

== ENCOUNTER 2018-07-11 20:28 | Emergency (ER) | payer MEDICARE, OTHER ==
[~2018-07-11] VITALS: Ht 152.4 cm; Wt 54.4 kg
--- NOTE | 2018-07-11 20:37 | ED Head Injury ---
General Stated Complaint: FALL Source: patient Exam Limitations: no limitations History of Present Illness Date Seen by Provider: Jul 11, 2018 Time Seen by Provider: 20:33 Initial Comments To ER with reports of a head injury. Patient was sitting on the toilet when nurses aides were trying to get her dressed for bed this evening. They were pulling off her pants, the patient tipped over the right side of her head on something in the bathroom. Denies loss of consciousness or neck pain, denies hip pain or extremity pain. Denies headache however she is on anticoagulant she was referred to the emergency room for evaluation. Occurred: just prior to arrival Severity: moderate Location: temporal Method of Injury: fell Loss of Consciousness: no loss of consciousness Associated Systoms: Denies Symptoms; No Headaches, No Nausea/Vomiting Allergies and Home Medications Allergies Coded Allergies: Latex, Natural Rubber (Verified Allergy, Unknown, 08/24/16) Penicillins (Verified Allergy, Unknown, 08/24/16) butorphanol (Verified Allergy, Unknown, Patient takes oxycodone/APAP at home, 09/01/16) cefotaxime (Verified Allergy, Unknown, 08/24/16) diazepam (Verified Allergy, Unknown, 08/24/16) doxycycline (Verified Allergy, Unknown, 08/24/16) levofloxacin (Verified Allergy, Unknown, 08/24/16) sulfamethoxazole (Verified Allergy, Unknown, 08/24/16) trimethoprim (Verified Allergy, Unknown, 08/24/16) Home Medications Aspirin 325 Mg Tablet.dr, 325 MG PO DAILY, (Reported) Carbamazepine 300 Mg Cpmp.12hr, 600 MG PO BID, (Reported) TAKES 2 (300 MG) TABLETS Fluticasone/Vilanterol 1 Each Blst.w.dev, 1 PUFF IH DAILY, (Reported) Folic Acid 0.8 Mg Tablet, 0.8 MG PO DAILY, (Reported) Levetiracetam 500 Mg Tablet, 500 MG PO BID Prescribed by: YORDY CHERY on 09/02/16 1028 Lisinopril 2.5 Mg Tablet, 2.5 MG PO DAILY, (Reported) Lorazepam 2 Mg Tablet, 2 MG PO TID, (Reported) Methotrexate Tablet 2.5 Mg Tablet, 15 MG PO EVERY 7 DAYS, (Reported) TAKES 6 (2.5 MG) TABLETS Mirtazapine 15 Mg Tablet, 15 MG PO HS, (Reported) Ondansetron 4 Mg Tab.rapdis, 4 MG BC Q8H PRN for NAUSEA/VOMITING-1ST LINE, (Reported) Oxycodone HCl/Acetaminophen 1 Each Tablet, 1 TAB PO Q4H PRN for PAIN-SEVERE, (Reported) Pramipexole Di-HCl 0.25 Mg Tablet, 0.25 MG PO HS, (Reported) Ranitidine HCl 150 Mg Tablet, 150 MG PO BID, (Reported) Trazodone HCl 150 Mg Tablet, 150 MG PO HS, (Reported) Warfarin Sodium 5 Mg Tablet, 10 MG PO MoTuWeThFr, (Reported) TAKES 2 (5 MG) TABLETS Warfarin Sodium 5 Mg Tablet, 5 MG PO SuSa, (Reported) Patient Home Medication List Home Medication List Reviewed: Yes Review of Systems Review of Systems Constitutional: see HPI Eyes: No Symptoms Reported Ears, Nose, Mouth, Throat: no symptoms reported Respiratory: no symptoms reported Cardiovascular: no symptoms reported Genitourinary: no symptoms reported Musculoskeletal: no symptoms reported Skin: no symptoms reported Psychiatric/Neurological: No Symptoms Reported; Denies Cognitive Dysfunction, Denies Headache Endocrine: No Symptoms Reported Past Ggqvncw-Qjwttl-Oykpvy Hx Patient Social History Type Used: Cigarettes Recent Foreign Travel: No Contact w/Someone Who Travel: No Recent Hopitalizations: Yes (APRIL-LUNG INFECTION) Immunizations Up To Date Tetanus Booster (TDap): Unknown Date of Pneumonia Vaccine: May 24, 2016 Date of Influenza Vaccine: Nov 22, 2016 Seasonal Allergies Seasonal Allergies: No Past Medical History Surgeries: Yes (MITRAL VALVE REPLACEMENT; BILATERAL SHOULDER REPLACEMENT) Adenoidectomy, Appendectomy, Cardiac, Gallbladder, Tonsillectomy, Valve Replacement Respiratory: Yes (02 2L) COPD Currently Using CPAP: No Currently Using BIPAP: No Cardiac: Yes (MITRAL VALVE REPLACEMENT) Hypertension, Valvular Heart Disease Neurological: Yes Parkinson's Disease, Seizure Disorder, TIA 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 Disorders: No Female 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 Disorders: 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 Sexually Transmitted Disease: No HIV/AIDS: No Genitourinary: No Gastrointestinal: Yes Gastroesophageal Reflux, Chronic Constipation Musculoskeletal: Yes Rheumatoid Arthritis Endocrine: No HEENT: No Loss of Vision: Bilateral Hearing Impairment: Denies Cancer: No Lung Psychosocial: Yes Sleep Difficulties, Anxiety Integumentary: No Blood Disorders: No Adverse Reaction/Blood Tranf: No Physical Exam Vital Signs Vital Signs - First Documented 07/11/18 20:35 Temp 96.9 Pulse 85 Resp 18 B/P (MAP) 110/72 (85) Pulse Ox 100 O2 Delivery Room Air Capillary Refill : Height, Weight, BMI Height: 5'0.00" Weight: 135lbs. 2.0oz. 61.934194my; 25.0 BMI Method:Stated General Appearance: WD/WN, no apparent distress HEENT: PERRL/EOMI, normal ENT inspection, TMs normal, other (is no scalp laceration hematoma abrasion or other sign of injury. There is no neck tenderness to palpation.) Neck: non-tender, full range of motion; No tender lateral, No tender midline Respiratory: no respiratory distress, no accessory muscle use Extremities: normal range of motion, non-tender Psychiatric: alert, oriented x 3 Skin: normal color, warm/dry Roberto Coma Score Best Eye Response: (4) Open Spontaneously Best Verbal Response: (5) Oriented Best Motor Response: (6) Obeys Commands Roberto Total: 15 Progress/Results/Core Measures Results/Orders My Orders Orders - MICHAEL RANDALL APRN Ct Head Wo (07/11/18 20:32) Vital Signs/I&O 07/11/18 20:35 Temp 96.9 Pulse 85 Resp 18 B/P (MAP) 110/72 (85) Pulse Ox 100 O2 Delivery Room Air Departure Impression Primary Impression: Head injury Qualified Codes: S09.90XA - Unspecified injury of head, initial encounter Disposition: 01 HOME, SELF-CARE Condition: Stable Departure-Patient Inst. Decision time for Depature: 21:19 Referrals: REGINALD WHITLEY MD (PCP/Family) Primary Care Physician Patient Instructions: Minor Head Injury (DC) Add. Discharge Instructions: 1. Return to ER for any severe headache confusion that is new or worsening, vomiting or other concerns. MICHAEL RANDALL APRN Jul 11, 2018 20:37
--- NOTE | 2018-07-11 21:04 | Diagnostic Imaging Report ---
PROCEDURE: CT head without contrast. TECHNIQUE: Multiple contiguous axial images were obtained through the brain without the use of intravenous contrast. Auto Exposure Controls were utilized during the CT exam to meet ALARA standards for radiation dose reduction. INDICATION: Fall from commode. Comparison with 05/03/2018. FINDINGS: There is encephalomalacia again noted in the left parietal and occipital lobes. No evidence of intracranial hemorrhage. No mass effect. Ventricles are not dilated. There are no extra-axial fluid collections. Basal cisterns are clear. Chronic mucosal thickening in the right maxillary sinus with surgical changes of the sinuses. Mastoid air cells are clear. No evidence of calvarial fractures. IMPRESSION: 1. Encephalomalacia left parietal-occipital region. 2. No acute intracranial abnormalities demonstrated. Dictated by: Dictated on workstation # [id number]
[2018-07-11 22:28] VITALS: BP 96/56
[2018-07-13] MEDS ORDERED: IPRA3AMP31 NEB (08:39)
[2018-07-13] MEDS ORDERED: ACET-2267 PO (08:39)
[2018-07-13] MEDS ORDERED: DIGO125T PO (08:39)
[2018-07-13] MEDS ORDERED: LEVE250T18 PO (08:39)
[2018-07-13] MEDS ORDERED: HYDR-3812 PO (08:39)
[2018-07-13] MEDS ORDERED: OLAN2.5T27 PO (08:39)
[2018-07-13] MEDS ORDERED: SENN-145 PO (08:39)
[2018-07-13] MEDS ORDERED: LORA0.5T PO (08:39)
[2018-07-13] MEDS ORDERED: RANI150C4 PO (08:39)
[2018-07-13] MEDS ORDERED: LEVE100015 PO (08:39)
[2018-07-13] MEDS ORDERED: METO50TA15 PO (08:39)
[2018-07-13] MEDS ORDERED: ASPI-983 PO (08:39)
[2018-07-13] MEDS ORDERED: AMIO200T4 PO (08:39)
[2018-07-13] MEDS ORDERED: CHOL10007 PO (08:39)
[2018-07-13] MEDS ORDERED: LACO200T2 PO (08:39)
[2018-07-13] MEDS ORDERED: FURO40TA4 PO (08:39)
[2018-07-13] MEDS ORDERED: HYDR25SU5 RC (08:39)
[2018-07-13] MEDS ORDERED: MONT10TA21 PO (08:39)
[2018-07-13] MEDS ORDERED: LACO150T2 PO (08:39)
[2018-07-13] MEDS ORDERED: FLUT1BLS IH (08:39)
[2018-07-13] MEDS ORDERED: [UNRECOGNIZED DRUG - CODE] IV (08:39)
[2018-07-13] MEDS ORDERED: ALBU2.5V4 NEB (08:39)
[2018-07-13] MEDS ORDERED: CALC-938 PO (08:39)
[2018-07-13] MEDS ORDERED: HYDR-3062 PO (08:39)
[2018-07-13] MEDS ORDERED: LOVA40TA2 PO (08:39)
[2018-07-13] MEDS ORDERED: WARF6TAB49 PO (08:39)
== END 2018-07-11 22:28 | disposition home or self-care (01) ==
LOC: EDUNIT# 20:28 → ER 20:29
DX: S09.90XA Unspecified injury of head, initial encounter (principal); J44.9 Chronic obstructive pulmonary disease, unspecified; I10 Essential (primary) hypertension; G20 Parkinson's disease; G40.909 Epilepsy, unspecified, not intractable, without status epilepticus; K21.9 Gastro-esophageal reflux disease without esophagitis; M06.9 Rheumatoid arthritis, unspecified; R40.2142 Coma scale, eyes open, spontaneous, at arrival to emergency department; R40.2252 Coma scale, best verbal response, oriented, at arrival to emergency department; R40.2362 Coma scale, best motor response, obeys commands, at arrival to emergency department; F41.9 Anxiety disorder, unspecified; Z85.118 Personal history of other malignant neoplasm of bronchus and lung; Z87.19 Personal history of other diseases of the digestive system; Z86.73 Personal history of transient ischemic attack (TIA), and cerebral infarction without residual deficits; Z91.040 Latex allergy status; Z88.0 Allergy status to penicillin; Z88.8 Allergy status to other drugs, medicaments and biological substances; Z88.1 Allergy status to other antibiotic agents; Z88.2 Allergy status to sulfonamides; Z90.89 Acquired absence of other organs; Z88.6 Allergy status to analgesic agent; Z79.82 Long term (current) use of aspirin; Z79.51 Long term (current) use of inhaled steroids; Z79.01 Long term (current) use of anticoagulants; Z95.2 Presence of prosthetic heart valve; Z96.611 Presence of right artificial shoulder joint; Z96.612 Presence of left artificial shoulder joint; W18.30XA Fall on same level, unspecified, initial encounter
CPT/HCPCS: 70450

== ENCOUNTER 2018-07-12 23:18 | Inpatient (IN) | payer MEDICARE, OTHER | END 2018-07-13 12:03 | disposition home or self-care (01) | LOC: ICU 07-13 01:25 → ER 23:18 ==

== ENCOUNTER → 2018-07-18 | Outpatient (CLI) | payer OTHER ==
[~2018-07-18] MED LIST changes: +ACET-2267 PO; +ALBU2.5V4 NEB; +AMIO200T4 PO; +ASPI-983 PO; +CALC-938 PO; +CHOL10007 PO; +DIGO125T PO; +HYDR-3062 PO; +HYDR-3812 PO; +HYDR25SU5 RC; +IPRA3AMP31 NEB; +LACO150T2 PO; +LACO200T2 PO; +LEVE100015 PO; +LEVE250T18 PO; +LORA0.5T PO; +LOVA40TA2 PO; +METO50TA15 PO; +MONT10TA21 PO; +OLAN2.5T27 PO; +RANI150C4 PO; +SENN-145 PO; +WARF6TAB49 PO; +[UNRECOGNIZED DRUG - CODE] IV
== END ==
LOC: WOUNDCARE 13:42
PROVIDERS: ATTEND Surgery
DX: L97.212 Non-pressure chronic ulcer of right calf with fat layer exposed (principal); I87.331 Chronic venous hypertension (idiopathic) with ulcer and inflammation of right lower extremity; I70.232 Atherosclerosis of native arteries of right leg with ulceration of calf; S82.101A Unspecified fracture of upper end of right tibia, initial encounter for closed fracture; X58.XXXA Exposure to other specified factors, initial encounter
CPT/HCPCS: 99214

== ENCOUNTER → 2018-07-25 | Outpatient (CLI) | payer MEDICARE, OTHER | LOC: WOUNDCARE 12:14 | PROVIDERS: ATTEND Surgery | DX: L97.212 Non-pressure chronic ulcer of right calf with fat layer exposed (principal); I87.331 Chronic venous hypertension (idiopathic) with ulcer and inflammation of right lower extremity; I70.232 Atherosclerosis of native arteries of right leg with ulceration of calf; S82.101A Unspecified fracture of upper end of right tibia, initial encounter for closed fracture; X58.XXXA Exposure to other specified factors, initial encounter | CPT/HCPCS: 99212 ==

== ENCOUNTER → 2018-07-25 | Outpatient (CLI) | payer MEDICARE, OTHER ==
--- NOTE | 2018-07-25 12:38 | Diagnostic Imaging Report ---
EXAMINATION: Ultrasound Noninvasive. INDICATION: Leg pain. COMPARISON: There are no prior studies available for comparison. FINDINGS: Routine images of the lower extremities were obtained. The ankle-brachial index on the right is 1.10 and on the left 1.17 (normal greater than 1.00). IMPRESSION: The ankle-brachial indices are within normal limits. Dictated by: Dictated on workstation # [id number]
== END ==
LOC: RAD 11:24
PROVIDERS: ATTEND Surgery
DX: I70.232 Atherosclerosis of native arteries of right leg with ulceration of calf (principal); L97.212 Non-pressure chronic ulcer of right calf with fat layer exposed; I87.331 Chronic venous hypertension (idiopathic) with ulcer and inflammation of right lower extremity; S82.101A Unspecified fracture of upper end of right tibia, initial encounter for closed fracture
CPT/HCPCS: 93923

== ENCOUNTER → 2018-07-25 | Outpatient (CLI) | payer MEDICARE, OTHER | LOC: LAB 13:07 | PROVIDERS: ATTEND Surgery | DX: L97.212 Non-pressure chronic ulcer of right calf with fat layer exposed (principal); I87.331 Chronic venous hypertension (idiopathic) with ulcer and inflammation of right lower extremity; I70.232 Atherosclerosis of native arteries of right leg with ulceration of calf | CPT/HCPCS: 36415; 84134 ==

== ENCOUNTER → 2018-08-02 | Outpatient (CLI) | payer MEDICARE, OTHER | LOC: WOUNDCARE 08:08 | PROVIDERS: ATTEND Surgery | DX: I70.232 Atherosclerosis of native arteries of right leg with ulceration of calf (principal); L97.212 Non-pressure chronic ulcer of right calf with fat layer exposed; I87.331 Chronic venous hypertension (idiopathic) with ulcer and inflammation of right lower extremity; S82.101A Unspecified fracture of upper end of right tibia, initial encounter for closed fracture; X58.XXXA Exposure to other specified factors, initial encounter | CPT/HCPCS: 99212 ==

== ENCOUNTER → 2018-08-08 | Outpatient (CLI) | payer MEDICARE, OTHER | LOC: WOUNDCARE 15:28 | PROVIDERS: ATTEND Surgery | DX: T84.196A Other mechanical complication of internal fixation device of bone of right lower leg, initial encounter (principal); L97.212 Non-pressure chronic ulcer of right calf with fat layer exposed; I87.331 Chronic venous hypertension (idiopathic) with ulcer and inflammation of right lower extremity; I70.232 Atherosclerosis of native arteries of right leg with ulceration of calf; S82.101A Unspecified fracture of upper end of right tibia, initial encounter for closed fracture; X58.XXXA Exposure to other specified factors, initial encounter | CPT/HCPCS: 99213 ==

== ENCOUNTER → 2018-08-17 | Outpatient (CLI) | payer MEDICARE, OTHER | LOC: WOUNDCARE 09:23 | PROVIDERS: ATTEND Nurse Practitioner | DX: I70.261 Atherosclerosis of native arteries of extremities with gangrene, right leg (principal); L97.212 Non-pressure chronic ulcer of right calf with fat layer exposed; S82.101A Unspecified fracture of upper end of right tibia, initial encounter for closed fracture; T84.196A Other mechanical complication of internal fixation device of bone of right lower leg, initial encounter | CPT/HCPCS: 99212 ==

== ENCOUNTER → 2018-08-31 | Outpatient (CLI) | payer MEDICARE, OTHER ==
[~2018-08-31] MED LIST changes: +RANI-613 PO; -RANI150T46 PO
== END ==
LOC: WOUNDCARE 09:04
PROVIDERS: ATTEND Nurse Practitioner
DX: I70.261 Atherosclerosis of native arteries of extremities with gangrene, right leg (principal); L97.212 Non-pressure chronic ulcer of right calf with fat layer exposed; I87.331 Chronic venous hypertension (idiopathic) with ulcer and inflammation of right lower extremity; T84.196A Other mechanical complication of internal fixation device of bone of right lower leg, initial encounter; S82.101A Unspecified fracture of upper end of right tibia, initial encounter for closed fracture
CPT/HCPCS: 11042

== ENCOUNTER → 2018-09-14 | Outpatient (CLI) | payer MEDICARE, OTHER | LOC: WOUNDCARE 09:17 | PROVIDERS: ATTEND Nurse Practitioner | DX: T84.196A Other mechanical complication of internal fixation device of bone of right lower leg, initial encounter (principal); L97.212 Non-pressure chronic ulcer of right calf with fat layer exposed; I87.331 Chronic venous hypertension (idiopathic) with ulcer and inflammation of right lower extremity; I70.232 Atherosclerosis of native arteries of right leg with ulceration of calf; S82.101A Unspecified fracture of upper end of right tibia, initial encounter for closed fracture; I96 Gangrene, not elsewhere classified | CPT/HCPCS: 99212 ==

== ENCOUNTER 2018-10-20 09:59 | Emergency (ER) | payer MEDICARE, OTHER ==
[~2018-10-20] VITALS: Ht 152.5 cm; Wt 54.5 kg
--- NOTE | 2018-10-20 09:59 | NUR ---
Pt arrival to ED Code Red and sent straight to CT for head CT stat. Stroke sx present, onset 629.
--- NOTE | 2018-10-20 10:16 | NUR ---
Returned to room. Further hx taken. Discussed the plan for Neuro Consult via phone with probably [facility]. Pt begins to say "NO!" speaks to patient and patient does not want to go [place]. Pt's requests [place]. Pt agreeable. Dr discussed acute stroke sx and need of neuro management as window narrows on thrombolytic intervention. Pt's inserts comment, "You all know she is a DNR?" Pt's spouse asking if could just send her to [place]. Pt's spouse was being explained the things other neurolgist specialty can do. continues to say [place] is close and just fine. RN asked if he is trying for a pallative care? Dr Quintero states this is an acute Stroke sir and we need to refer her on to specialist for Neurology.
--- NOTE | 2018-10-20 10:18 | Diagnostic Imaging Report ---
PROCEDURE: CT head wo r/o stroke. TECHNIQUE: Multiple contiguous axial images were obtained through the brain without the use of intravenous contrast. Auto Exposure Controls were utilized during the CT exam to meet ALARA standards for radiation dose reduction. INDICATION: Left-sided weakness. COMPARISON: 07/11/2018 FINDINGS: There are scattered areas of old left-sided cerebral infarct. Overall, distribution is stable compared to prior exam. There is no new loss of mathews-white matter junction differentiation to suggest acute territorial infarct. Chronic small vessel ischemic changes are also noted within the deep white matter. There is no evidence of intra-or extra-axial intracranial hemorrhage. Ventricles and cortical sulci are diffusely prominent consistent with background age-related parenchymal volume loss. There is no new mass effect or midline shift. Bony calvarium shows no acute abnormalities. Paranasal sinuses show scattered mucosal thickening with air-fluid level in the right maxillary sinus. Mastoid air cells show no acute abnormalities. IMPRESSION: 1. No new acute intracranial abnormality. No CT evidence of acute infarct, mass, nor hemorrhage. 2. Background chronic small vessel ischemic changes and multiple old infarcts of the left cerebral hemisphere. 3. Air-fluid level within the right maxillary sinus. Correlation with underlying acute sinusitis is recommended. Dictated by: Dictated on workstation # [id number]
[2018-10-20 10:20] VITALS: BP 127/70
--- NOTE | 2018-10-20 10:20 | NUR ---
Dr Quintero performing NIH scale with constant re-directing patient to make some effort to score as correct as possible. Pt was not making best effort.
--- NOTE | 2018-10-20 10:31 | ED Neurological Problem ---
General Chief Complaint: Neuro-Stroke Like Symptoms Stated Complaint: STROKE SYMPTOMS History of Present Illness Date Seen by Provider: Oct 20, 2018 Time Seen by Provider: 10:26 Initial Comments 68 yo female is DNR hx of heart valve intervention mitral valve replacement on coumadin apparently was OK on arising this AM but some time around 06:00 had acute weakness slumped into wheelchair and had to help hours later EMS dispatched pt arrives approx 10 AM, 4 hrs after onset pt has flacced left arm, weak left leg is able to verbalize and communicate some but seems to have some receptive and visual difficulty Allergies and Home Medications Allergies Coded Allergies: Latex, Natural Rubber (Verified Allergy, Unknown, 08/24/16) Penicillins (Verified Allergy, Unknown, HIVES, 07/13/18) butorphanol (Verified Allergy, Unknown, Patient takes oxycodone/APAP at home, 09/01/16) cefotaxime (Verified Allergy, Unknown, 08/24/16) diazepam (Verified Allergy, Unknown, 08/24/16) doxycycline (Verified Allergy, Unknown, 08/24/16) levofloxacin (Verified Allergy, Unknown, 08/24/16) sulfamethoxazole (Verified Allergy, Unknown, 08/24/16) trimethoprim (Verified Allergy, Unknown, 08/24/16) Home Medications Acetaminophen 500 Mg Tablet, 1,000 MG PO Q8H PRN for PAIN-MILD, (Reported) Albuterol Sulfate 2.5 Mg/3 Ml Vial.neb, 2.5 MG NEB Q6H PRN for SHORTNESS OF BREATH, (Reported) Amiodarone HCl 200 Mg Tablet, 200 MG PO BID, (Reported) Aspirin 81 Mg Tablet.dr, 81 MG PO DAILY, (Reported) Calcium Carbonate 300 Mg Tab.chew, 750 MG PO TID, (Reported) Cholecalciferol (Vitamin D3) 1,000 Unit Capsule, 1,000 UNIT PO DAILY, (Reported) Digoxin 125 Mcg Tablet, 125 MCG PO DAILY, (Reported) Fluticasone/Vilanterol 1 Each Blst.w.dev, 1 PUFF IH DAILY, (Reported) Folic Acid 0.8 Mg Tablet, 0.8 MG PO DAILY, (Reported) Furosemide 40 Mg Tablet, 40 MG PO DAILY, (Reported) Hydrocodone/Acetaminophen 1 Each Tablet, 1 TAB PO Q4H PRN for PAIN-MODERATE, (Reported) Hydrocodone/Acetaminophen 1 Each Tablet, 1 TAB PO Q4H PRN for PAIN-MODERATE, (Reported) Hydrocortisone Acetate 25 Mg Supp.rect, 25 MG RC Q8H PRN for ARTHRITIS, (Reported) Ipratropium/Albuterol Sulfate 3 Ml Ampul.neb, 3 ML NEB Q6H PRN for SHORTNESS OF BREATH, (Reported) Lacosamide 150 Mg Tablet, 150 MG PO DAILY, (Reported) Lacosamide 200 Mg Tablet, 200 MG PO HS, (Reported) Levetiracetam 1,000 Mg Tablet, 1,000 MG PO BID, (Reported) Levetiracetam 250 Mg Tablet, 250 MG PO BID, (Reported) Lisinopril 2.5 Mg Tablet, 2.5 MG PO DAILY, (Reported) NOTIFY PHYSICIAN IF BP<80/50 OR >180/110 OR PULSE <50 OR >110 Lorazepam 0.5 Mg Tablet, 0.5 MG PO Q8H PRN for ANXIETY, (Reported) Lovastatin 40 Mg Tablet, 40 MG PO DAILY, (Reported) Metoprolol Tartrate 50 Mg Tablet, 50 MG PO BID, (Reported) NOTIFY PHYSICIAN IF BP IS <80/50 OR >180/110 OR PULSE <50 OR >110 Mirtazapine 15 Mg Tablet, 15 MG PO HS, (Reported) Montelukast Sodium 10 Mg Tablet, 10 MG PO DAILY, (Reported) Olanzapine 2.5 Mg Tablet, 2.5 MG PO DAILY, (Reported) Piperacillin Sodium/Tazobactam 3.375 Gm Vial, 3.375 GM IV Q6H, (Reported) 7 DAY SUPPLY START DATE 07-11-18 END DATE 07-17-18 Ranitidine HCl 150 Mg Capsule, 150 MG PO BID, (Reported) Sennosides/Docusate Sodium 1 Each Tablet, 1 TAB PO BID, (Reported) Warfarin Sodium 6 Mg Tablet, 6 MG PO DAILY, (Reported) Patient Home Medication List Home Medication List Reviewed: Yes Review of Systems Review of Systems Constitutional: no symptoms reported Eyes: See HPI; Denies Blurred Vision, Denies Decreased Acuity, Denies Previous Injury; Vision Changes; Denies Other Ears, Nose, Mouth, Throat: no symptoms reported, see HPI; denies nose pain, denies nose discharge, denies loose teeth Respiratory: no symptoms reported; No orthopnea, No phlegm, No stridor Cardiovascular: no symptoms reported; No palpitations, No syncope Gastrointestinal: No nausea, No vomiting Genitourinary: No dysuria, No hematuria Skin: No rash Psychiatric/Neurological: See HPI; Denies Anxiety, Denies Depressed, Denies [place] Seizures, Denies Weakness, Denies Other Endocrine: Denies Increased Thrist, Denies Increased Urine, Denies Unexplained Weight Gain, Denies Unexplaned Weight Loss Hematologic/Lymphatic: Denies See HPI, Denies Anemia, Denies Blood Clots Past Ucmtciu-Oqmzdg-Hjnxcy Hx Patient Social History Type Used: Cigarettes 2nd Hand Smoke Exposure: No Recent Hopitalizations: Yes (leg fracture) Immunizations Up To Date Tetanus Booster (TDap): Unknown Date of Pneumonia Vaccine: May 24, 2016 Date of Influenza Vaccine: Nov 22, 2016 Seasonal Allergies Seasonal Allergies: No Past Medical History Surgeries: Yes Adenoidectomy, Appendectomy, Cardiac, Gallbladder, Tonsillectomy, Valve Replacement Respiratory: Yes (02 2L; LUNG CANCER, PER OLD RECORDS) COPD Currently Using CPAP: No Currently Using BIPAP: No Cardiac: Yes Atrial Fibrillation, Coronary Artery Disease, High Cholesterol, Hypertension, Valvular Heart Disease Neurological: Yes Parkinson's Disease, Seizure Disorder, TIA 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 Disorders: No Female 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 Disorders: Denies [employer] History: Menopausal Sexually Transmitted Disease: No HIV/AIDS: No Genitourinary: No Gastrointestinal: Yes Gastroesophageal Reflux, Chronic Constipation Musculoskeletal: Yes (BILATERAL LEG FRACTURES 04/2018--NON AMBULATORY SINCE THEN) Osteoporosis, Rheumatoid Arthritis, Fractures Endocrine: No HEENT: Yes (NASAL POLYPS) Loss of Vision: Bilateral Hearing Impairment: Denies Cancer: Yes (LUNG CANCER--SQUAMOUS CELL, PER OLD RECORDS) Lung Psychosocial: Yes Sleep Difficulties, Anxiety Integumentary: No Blood Disorders: No Adverse Reaction/Blood Tranf: No Physical Exam Vital Signs Capillary Refill : Height, Weight, BMI Height: 5'0.00" Weight: 133lbs. 9.0oz. [id number]; 25.8 BMI Method:Stated General Appearance: mild distress HEENT: other (can't get pt to gaze to left) Neck: supple Respiratory: normal breath sounds Cardiovascular: regular rate, rhythm Neurologic/Psychiatric: motor weakness, sensory deficit Crainal Nerves: PERRL, facial droop (won't grimace hard to tell), gaze palsy Coordination/Gait: No normal finger to nose Stroke NIH Stroke Scale Assessment Select: Post CT Level of Consciousness: 1=Aroused by mild stimuli (1), Level of Consciousness-Questions: 1=Answers one question (1), LOC Commands: 0=Performs both tasks (0), Gaze: Partial Gaze Palsy (1), Visual Couch: 1=Partial hemianopia (1), Facial Movement (Facial Paresis): 1=Minor paralysis (1), Motor Function-Arms Left: 4=No movement (4), Motor Function-Legs Left: 2=Some effort/gravity (2), Limb Ataxia: 2=Present in two limbs (2), Sensory: 2=Severe to total loss (2), Best Language: 1=Mild to moderat aphasia (1), Dysarthria: 0=Normal (0), Extinction & Inattention: 1=Visual,tactile,auditory (1), Total: 17 Progress/Results/Core Measures Results/Orders Lab Results Laboratory Tests Test 10/20/18 10:19 10/20/18 10:35 Range/Units Glucometer 163 H 70-110 MG/DL White Blood Count 5.0 4.3-11.0 10^3/uL Red Blood Count 3.99 L 4.35-5.85 10^6/uL Hemoglobin 11.9 11.5-16.0 G/DL Hematocrit 39 35-52 % Mean Corpuscular Volume 98 80-99 FL Mean Corpuscular Hemoglobin 30 25-34 PG Mean Corpuscular Hemoglobin Concent 30 L 32-36 G/DL Red Cell Distribution Width 14.7 H 10.0-14.5 % Platelet Count 290 130-400 10^3/uL Mean Platelet Volume 9.7 7.4-10.4 FL Neutrophils (%) (Auto) 78 H 42-75 % Lymphocytes (%) (Auto) 9 L 12-44 % Monocytes (%) (Auto) 9 0-12 % Eosinophils (%) (Auto) 3 0-10 % Basophils (%) (Auto) 0 0-10 % Neutrophils # (Auto) 3.9 1.8-7.8 X 10^3 Lymphocytes # (Auto) 0.5 L 1.0-4.0 X 10^3 Monocytes # (Auto) 0.4 0.0-1.0 X 10^3 Eosinophils # (Auto) 0.2 0.0-0.3 10^3/uL Basophils # (Auto) 0.0 0.0-0.1 10^3/uL Prothrombin Time 26.8 H 12.2-14.7 SEC INR Comment 2.4 H 0.8-1.4 Sodium Level 140 135-145 MMOL/L Potassium Level 4.8 3.6-5.0 MMOL/L Chloride Level 101 98-107 MMOL/L Carbon Dioxide Level 26 21-32 MMOL/L Anion Gap 13 5-14 MMOL/L Blood Urea Nitrogen 26 H 7-18 MG/DL Creatinine 0.83 0.60-1.30 MG/DL Estimat Glomerular Filtration Rate > 60 BUN/Creatinine Ratio 31 Glucose Level 169 H 70-105 MG/DL Calcium Level 9.4 8.5-10.1 MG/DL Corrected Calcium 9.2 8.5-10.1 MG/DL Total Bilirubin 0.3 0.1-1.0 MG/DL Aspartate Amino Transf (AST/SGOT) 36 H 5-34 U/L Alanine Aminotransferase (ALT/SGPT) 42 0-55 U/L Alkaline Phosphatase 265 H 40-136 U/L Total Protein 7.3 6.4-8.2 GM/DL Albumin 4.3 3.2-4.5 GM/DL My Orders Orders - BEATRICE POLLARD MD Ct Head Wo-R/O Stroke (10/20/18 10:02) Iv Heplock-Insert (Order) (10/20/18 10:22) Protime With Inr (10/20/18 10:22) Cbc With Automated Diff (10/20/18 10:22) Comprehensive Metabolic Panel (10/20/18 10:22) Monitor-Rhythm Ecg Trace Only (10/20/18 10:22) Ekg Tracing (10/20/18 10:22) Ct Angio Head/Neck (10/20/18 10:59) Comment EKG atrial flutter 2:1 rate ~100 CT head no bleed no apparent acute stroke Hb 11.9 WBC 5000 CMP glucose 169 alk phos 265 creat 0.8 PT 27 INR 2.4 discussed with is pt of [facility] discussed with Neuro Dr. Ji neuro says get CT angio head and neck if possible (ordered) and transfer to [facility] in ER aware Departure Impression Primary Impression: Cerebrovascular accident due to cerebral artery occlusion Additional Impression: Atrial flutter Qualified Codes: I48.92 - Unspecified atrial flutter Disposition: 02 XFER SHT-TRM HOSP Condition: Stable Departure-Patient Inst. Referrals: REGINALD WHITLEY MD (PCP/Family) Primary Care Physician BEATRICE POLLARD MD Oct 20, 2018 10:31
--- NOTE | 2018-10-20 10:35 | NUR ---
20 ga SL placed RAC. Brianna HAMILTON had placed Hamlin needle to R Groshong port and not get but minimal blood flash, flushes easily.
[2018-10-20 10:41] LABS: BASOPHILS % (AUTO) 0 % (0-10); EOSINOPHILS # (AUTO) 0.2 10^3/uL (0.0-0.3); EOSINOPHILS % (AUTO) 3 % (0-10); HEMATOCRIT 39 % (35-52); HEMOGLOBIN 11.9 G/DL (11.5-16.0); LYMPHOCYTES # (AUTO) 0.5 X 10^3 (1.0-4.0); LYMPHOCYTES % (AUTO) 9 % (12-44); MEAN CORPUSCULAR HEMOGLOBIN 30 PG (25-34); MEAN CORPUSCULAR HGB CONC 30 G/DL (32-36); MEAN CORPUSCULAR VOLUME 98 FL (80-99); MEAN PLATELET VOLUME 9.7 FL (7.4-10.4); MONOCYTES # (AUTO) 0.4 X 10^3 (0.0-1.0); MONOCYTES % (AUTO) 9 % (0-12); NEUTROPHILS # (AUTO) 3.9 X 10^3 (1.8-7.8); NEUTROPHILS % (AUTO) 78 % (42-75); PLATELET COUNT 290 10^3/uL (130-400); RED CELL DISTRIBUTION WIDTH 14.7 % (10.0-14.5)
[2018-10-20 10:45] VITALS: BP 130/71
--- NOTE | 2018-10-20 10:50 | NUR ---
Notified CT for stat CT angio, another patient is on table and trying to get pt done to ready for this pt.
[2018-10-20 10:55] LABS: INR 2.4 (0.8-1.4); PROTHROMBIN TIME PATIENT 26.8 SEC (12.2-14.7)
[2018-10-20 10:56] LABS: ALKALINE PHOSPHATASE 265 U/L (40-136); BILIRUBIN,TOTAL 0.3 MG/DL (0.1-1.0); BUN/CREATININE RATIO 31; CALCIUM 9.4 MG/DL (8.5-10.1); CARBON DIOXIDE 26 MMOL/L (21-32); CHLORIDE 101 MMOL/L (98-107); CREATININE SERUM 0.83 MG/DL (0.60-1.30); GFR ESTIMATED > 60; GLUCOSE 169 MG/DL (70-105); POTASSIUM 4.8 MMOL/L (3.6-5.0); SODIUM 140 MMOL/L (135-145)
[2018-10-20 10:57] LABS: ALANINE AMINOTRANSFERASE 42 U/L (0-55); ALBUMIN 4.3 GM/DL (3.2-4.5); TOTAL PROTEIN 7.3 GM/DL (6.4-8.2)
[2018-10-20 11:00] VITALS: BP 134/72
--- NOTE | 2018-10-20 11:06 | NUR ---
[facility] contacted at this time for transfer to [facility]. [facility] 2 accepted. ETA 20 minutes
--- NOTE | 2018-10-20 11:13 | NUR ---
Pt to CT per cart for CT Angio head and neck.
[2018-10-20 11:15] VITALS: BP 102/65
[2018-10-20] MEDS ORDERED: CATHETER FLUSH 10 ML SYR IV PRN (11:15)
[2018-10-20] MEDS ORDERED: IOHEXOL 350 MG/ML 100 ML (OMNIPAQUE 350) VIAL IV ONE (11:15)
[2018-10-20] MEDS ORDERED: NS 100 ML (IVPB) BAG IV ONE (11:15)
[2018-10-20] MEDS ORDERED: HOLD METFORMIN - RECEIVED CONTRAST 20 ML VIAL IV SCH (11:15)
--- NOTE | 2018-10-20 11:20 | NUR ---
Pt has cough sound then produced probable secretions and appears to having difficulty clearing secretions so cyndieer attempted for suctioning and nothing to suction at this time. Remains NPO, defer Dysphagia screening.
--- NOTE | 2018-10-20 11:21 | NUR ---
ETA for [facility] 8 minutes
[2018-10-20] MEDS ORDERED: LORazepam INJ 2 MG/ML (ATIVAN) VIAL ONE (11:28)
--- NOTE | 2018-10-20 11:35 | NUR ---
Pt returns from CT.
--- NOTE | 2018-10-20 11:40 | NUR ---
[facility], report given. Obtaining Ativan for mild clonic-tonic seizure activity noted [id number].
--- NOTE | 2018-10-20 11:41 | NUR ---
Seizure witnessed at 1136. Ativan 2mg/ml given at 1137.
--- NOTE | 2018-10-20 11:42 | NUR ---
[facility] applying their monitoring on patient.
[2018-10-20 11:45] VITALS: BP 102/65
[2018-10-20] MEDS ORDERED: LORazepam INJ 2 MG/ML (ATIVAN) VIAL IVP ONE (11:45)
--- NOTE | 2018-10-20 11:45 | NUR ---
Pt departing at this time being flown to [facility] via [facility] helicopter. No curent seizure post Ativan 2 mg IV earlier. Updated reported to [facility].
--- NOTE | 2018-10-20 12:08 | Diagnostic Imaging Report ---
PROCEDURE: CT angiography of the head and CT angiography of the neck with and without contrast. TECHNIQUE: Contiguous noncontrast images were obtained from the skull base through the vertex. After intravenous contrast administration, helical CT angiography of the neck was performed. Source data was reformatted into 3D MIP projections. Delayed post contrast acquisition was also obtained. Auto Exposure Controls were utilized during the CT exam to meet ALARA standards for radiation dose reduction. INDICATION: Left-sided weakness and slurred speech. Correlation is made with noncontrast head CT performed earlier the same day. FINDINGS: Delayed postcontrast images again demonstrate changes of chronic microvascular ischemia. Areas of encephalomalacia in the left frontal and parietal lobes are noted consistent with prior infarcts. No abnormal enhancement on delayed postcontrast images is seen. There is calcified plaque in the aortic arch. There is a three-vessel branching pattern to the aortic arch. Distal right common carotid artery does show moderate amount of calcified plaque, but no high-grade stenosis is seen. Left common carotid artery also shows some calcified plaque at the bifurcation, but no high-grade stenosis is identified. There is some calcified plaque in the carotid siphons bilaterally. Internal carotid arteries otherwise are unremarkable. Bilateral middle cerebral arteries demonstrate normal opacification. No filling defects are seen. Bilateral anterior cerebral arteries appear to be patent. The basilar artery is patent. Bilateral posterior cerebral arteries are patent. The vertebral arteries are unremarkable. Right vertebral artery is dominant. Note is made of moderate fluid in the right maxillary sinus. IMPRESSION: Moderate calcified plaque at the bilateral carotid bifurcations. No high-grade stenosis is seen. No intracranial cerebral arterial filling defect or large branch occlusion is identified. Dictated by: Dictated on workstation # [id number]
== END 2018-10-20 11:45 | disposition short-term general hospital (02) ==
LOC: EDUNIT# 09:59 → ER FS 10:00
DX: I63.50 Cerebral infarction due to unspecified occlusion or stenosis of unspecified cerebral artery (principal); I48.92 Unspecified atrial flutter; J44.9 Chronic obstructive pulmonary disease, unspecified; I48.91 Unspecified atrial fibrillation; I25.10 Atherosclerotic heart disease of native coronary artery without angina pectoris; E78.00 Pure hypercholesterolemia, unspecified; I10 Essential (primary) hypertension; G40.909 Epilepsy, unspecified, not intractable, without status epilepticus; G20 Parkinson's disease; K21.9 Gastro-esophageal reflux disease without esophagitis; M81.0 Age-related osteoporosis without current pathological fracture; M06.9 Rheumatoid arthritis, unspecified; F41.9 Anxiety disorder, unspecified; Z87.19 Personal history of other diseases of the digestive system; Z86.73 Personal history of transient ischemic attack (TIA), and cerebral infarction without residual deficits; Z85.118 Personal history of other malignant neoplasm of bronchus and lung; Z95.2 Presence of prosthetic heart valve; Z79.01 Long term (current) use of anticoagulants; Z91.040 Latex allergy status; Z88.0 Allergy status to penicillin; Z88.8 Allergy status to other drugs, medicaments and biological substances; Z88.1 Allergy status to other antibiotic agents; Z88.2 Allergy status to sulfonamides; Z79.82 Long term (current) use of aspirin; Z90.49 Acquired absence of other specified parts of digestive tract; Z90.89 Acquired absence of other organs; Z99.81 Dependence on supplemental oxygen
CPT/HCPCS: 36415; 51702; 70450; 70496; 70498; 80053; 82962; 85025; 85610; 93005; 93041

== ENCOUNTER 2018-10-25 11:27 | Emergency (ER) | payer MEDICARE, OTHER ==
[~2018-10-25] VITALS: Ht 152.4 cm; Wt 58.3 kg
[2018-10-25] MEDS ORDERED: LORazepam INJ 2 MG/ML (ATIVAN) VIAL ONE (11:34)
--- NOTE | 2018-10-25 11:40 | NUR ---
[place] after arrival patient exhibited seizure activity. Seizure began with twitching of her left hand and progressesed to tonic muscle spasms. The activity lasted 2 minutes and the patient resumed a post ictal state.
--- NOTE | 2018-10-25 12:22 | ED Neurological Problem ---
General Chief Complaint: Neurological Problems Stated Complaint: SEIZURE Nursing Triage Note: Patient brought in via EMS with c/o seizure. EMS reports that patient had a seizure prior to arrival and two more in route. reports that the patient was just discharged from [facility] yesterday and diagnosed with Geoff's Paralysis. States that she was transferred to [facility] on TuesdayOctober 20. Patient received 1mg Ativan IM per EMS while in route. Nursing Sepsis Screen: No Definite Risk Source: family, old records Exam Limitations: no limitations History of Present Illness Date Seen by Provider: Oct 25, 2018 Time Seen by Provider: 12:17 Initial Comments The patient is a 68-year-old white female who was here on 10/20 with what was feared to be a stroke. It is noted that she has had seizures since the 1960s. On the 10/20 presentation there was an element of paralysis. She was transferred to [facility] and had neurologic evaluation. Her head scans remained negative for stroke and she was given the diagnosis of seizure disorder with Geoff's paralysis. She was adjusted on her 2 previous anti-seizure medications and a third was added. She was discharged yesterday. She had a seizure this morning and then 2 more to follow. She is largely unresponsive and her gives the history. Timing/Duration: 4-6 hours Allergies and Home Medications Allergies Coded Allergies: Latex, Natural Rubber (Verified Allergy, Unknown, 08/24/16) Penicillins (Verified Allergy, Unknown, HIVES, 07/13/18) butorphanol (Verified Allergy, Unknown, Patient takes oxycodone/APAP at home, 09/01/16) cefotaxime (Verified Allergy, Unknown, 08/24/16) diazepam (Verified Allergy, Unknown, 08/24/16) doxycycline (Verified Allergy, Unknown, 08/24/16) levofloxacin (Verified Allergy, Unknown, 08/24/16) sulfamethoxazole (Verified Allergy, Unknown, 08/24/16) trimethoprim (Verified Allergy, Unknown, 08/24/16) Home Medications Acetaminophen 500 Mg Tablet, 1,000 MG PO Q8H PRN for PAIN-MILD, (Reported) Albuterol Sulfate 2.5 Mg/3 Ml Vial.neb, 2.5 MG NEB Q6H PRN for SHORTNESS OF BREATH, (Reported) Amiodarone HCl 200 Mg Tablet, 200 MG PO BID, (Reported) Aspirin 81 Mg Tablet.dr, 81 MG PO DAILY, (Reported) Calcium Carbonate 300 Mg Tab.chew, 750 MG PO TID, (Reported) Cholecalciferol (Vitamin D3) 1,000 Unit Capsule, 1,000 UNIT PO DAILY, (Reported) Digoxin 125 Mcg Tablet, 125 MCG PO DAILY, (Reported) Fluticasone/Vilanterol 1 Each Blst.w.dev, 1 PUFF IH DAILY, (Reported) Folic Acid 0.8 Mg Tablet, 0.8 MG PO DAILY, (Reported) Furosemide 40 Mg Tablet, 40 MG PO DAILY, (Reported) Hydrocodone/Acetaminophen 1 Each Tablet, 1 TAB PO Q4H PRN for PAIN-MODERATE, (Reported) Hydrocodone/Acetaminophen 1 Each Tablet, 1 TAB PO Q4H PRN for PAIN-MODERATE, (Reported) Hydrocortisone Acetate 25 Mg Supp.rect, 25 MG RC Q8H PRN for ARTHRITIS, (Reported) Ipratropium/Albuterol Sulfate 3 Ml Ampul.neb, 3 ML NEB Q6H PRN for SHORTNESS OF BREATH, (Reported) Lacosamide 150 Mg Tablet, 150 MG PO DAILY, (Reported) Lacosamide 200 Mg Tablet, 200 MG PO HS, (Reported) Levetiracetam 1,000 Mg Tablet, 1,000 MG PO BID, (Reported) Levetiracetam 250 Mg Tablet, 250 MG PO BID, (Reported) Lisinopril 2.5 Mg Tablet, 2.5 MG PO DAILY, (Reported) NOTIFY PHYSICIAN IF BP<80/50 OR >180/110 OR PULSE <50 OR >110 Lorazepam 0.5 Mg Tablet, 0.5 MG PO Q8H PRN for ANXIETY, (Reported) Lovastatin 40 Mg Tablet, 40 MG PO DAILY, (Reported) Metoprolol Tartrate 50 Mg Tablet, 50 MG PO BID, (Reported) NOTIFY PHYSICIAN IF BP IS <80/50 OR >180/110 OR PULSE <50 OR >110 Mirtazapine 15 Mg Tablet, 15 MG PO HS, (Reported) Montelukast Sodium 10 Mg Tablet, 10 MG PO DAILY, (Reported) Olanzapine 2.5 Mg Tablet, 2.5 MG PO DAILY, (Reported) Piperacillin Sodium/Tazobactam 3.375 Gm Vial, 3.375 GM IV Q6H, (Reported) 7 DAY SUPPLY START DATE 6-4-19 END DATE 07-17-18 Ranitidine HCl 150 Mg Capsule, 150 MG PO BID, (Reported) Sennosides/Docusate Sodium 1 Each Tablet, 1 TAB PO BID, (Reported) Warfarin Sodium 6 Mg Tablet, 6 MG PO DAILY, (Reported) Patient Home Medication List Home Medication List Reviewed: Yes Review of Systems Review of Systems Constitutional: see HPI, other Cardiovascular: no symptoms reported Musculoskeletal: other (fracture of each lower leg this year and subsequent non-ambulatory state.) Past [id number]-[id number] Hx Patient Social History Alcohol Use: Denies Use Recreational Drug Use: No Type Used: Cigarettes 2nd Hand Smoke Exposure: No Recent Foreign Travel: No Contact w/Someone Who Travel: No Recent Infectious Disease Expo: No Recent Hopitalizations: Yes (Discharged from [facility] 10/24/18) Physical Abuse: No Sexual Abuse: No Mistreated: No Fear: No Immunizations Up To Date Tetanus Booster (TDap): Unknown Date of Pneumonia Vaccine: May 24, 2016 Date of Influenza Vaccine: Nov 22, 2016 Seasonal Allergies Seasonal Allergies: No Past Medical History Surgeries: Yes Adenoidectomy, Appendectomy, Cardiac, Gallbladder, Orthopedic, Tonsillectomy, Valve Replacement Respiratory: Yes (02 2L; LUNG CANCER- PER OLD RECORDS, TOBACCOISM) COPD Currently Using CPAP: No Currently Using BIPAP: No Cardiac: Yes Atrial Fibrillation, Coronary Artery Disease, High Cholesterol, Hypertension, Valvular Heart Disease Neurological: Yes Parkinson's Disease, Seizure Disorder, TIA 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 Disorders: No Female 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 Disorders: Denies 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 Sexually Transmitted Disease: No HIV/AIDS: No Genitourinary: No Gastrointestinal: Yes Gastroesophageal Reflux, Chronic Constipation Musculoskeletal: Yes (BILATERAL LEG FRACTURES 04/2018--NON AMBULATORY SINCE THEN) Osteoporosis, Rheumatoid Arthritis, Fractures Endocrine: No HEENT: Yes (NASAL POLYPS) Loss of Vision: Bilateral Hearing Impairment: Denies Cancer: Yes (LUNG CANCER--SQUAMOUS CELL, PER OLD RECORDS) Lung Psychosocial: Yes Sleep Difficulties, Anxiety Integumentary: No Blood Disorders: No Adverse Reaction/Blood Tranf: No Physical Exam Vital Signs Vital Signs - First Documented 10/25/18 11:30 Temp 37.3 Pulse 117 Resp 14 B/P (MAP) 112/86 (95) Pulse Ox 97 O2 Delivery Room Air Capillary Refill : Less Than 3 Seconds Height, Weight, BMI Height: 5'0.00" Weight: 133lbs. 9.0oz. [id number]; 25.00 BMI Method:Stated General Appearance: other (minimum Spons to touch and none to command.) HEENT: normal ENT inspection Respiratory: chest non-tender, lungs clear, normal breath sounds, no respiratory distress, no accessory muscle use, respiratory distress Cardiovascular: normal peripheral pulses, regular rate, rhythm, no edema, no gallop, no JVD Gastrointestinal: normal bowel sounds, non tender Extremities: other (dressing at right knee) Stroke NIH Stroke Scale Assessment Gaze: Partial Gaze Palsy (1), Total: Stroke Thrombolytic Exclusion Age 18 or Over: Yes Intracranial Neoplasm/Aneurysm: No Recent CPR: No Diabetic Hemorrhagic Retinopat: No Recent Obstetric Delivery: No Significant Hepatic Dysfunctio: No Improving Symptoms: No Progress/Results/Core Measures Results/Orders Lab Results Laboratory Tests Test 10/25/18 14:57 Range/Units White Blood Count 3.5 L 4.3-11.0 10^3/uL Red Blood Count 3.40 L 4.35-5.85 10^6/uL Hemoglobin 10.1 L 11.5-16.0 G/DL Hematocrit 33 L 35-52 % Mean Corpuscular Volume 98 80-99 FL Mean Corpuscular Hemoglobin 30 25-34 PG Mean Corpuscular Hemoglobin Concent 30 L 32-36 G/DL Red Cell Distribution Width 14.6 H 10.0-14.5 % Platelet Count 207 130-400 10^3/uL Mean Platelet Volume 9.7 7.4-10.4 FL Neutrophils (%) (Auto) 65 42-75 % Lymphocytes (%) (Auto) 17 12-44 % Monocytes (%) (Auto) 11 0-12 % Eosinophils (%) (Auto) 6 0-10 % Basophils (%) (Auto) 1 0-10 % Neutrophils # (Auto) 2.3 1.8-7.8 X 10^3 Lymphocytes # (Auto) 0.6 L 1.0-4.0 X 10^3 Monocytes # (Auto) 0.4 0.0-1.0 X 10^3 Eosinophils # (Auto) 0.2 0.0-0.3 10^3/uL Basophils # (Auto) 0.0 0.0-0.1 10^3/uL Sodium Level 142 135-145 MMOL/L Potassium Level 3.7 3.6-5.0 MMOL/L Chloride Level 103 98-107 MMOL/L Carbon Dioxide Level 25 21-32 MMOL/L Anion Gap 14 5-14 MMOL/L Blood Urea Nitrogen 12 7-18 MG/DL Creatinine 0.67 0.60-1.30 MG/DL Estimat Glomerular Filtration Rate > 60 BUN/Creatinine Ratio 18 Glucose Level 79 70-105 MG/DL Calcium Level 8.9 8.5-10.1 MG/DL Corrected Calcium 9.1 8.5-10.1 MG/DL Total Bilirubin 0.3 0.1-1.0 MG/DL Aspartate Amino Transf (AST/SGOT) 35 H 5-34 U/L Alanine Aminotransferase (ALT/SGPT) 33 0-55 U/L Alkaline Phosphatase 284 H 40-136 U/L Total Protein 6.3 L 6.4-8.2 GM/DL Albumin 3.7 3.2-4.5 GM/DL My Orders Orders - ASHLEY CHRISTY MD Lorazepam Injection (Ativan Injection) (10/25/18 11:34) Cbc With Automated Diff (10/25/18 11:52) Comprehensive Metabolic Panel (10/25/18 11:52) Lorazepam Injection (Ativan Injection) (10/25/18 12:54) Ns Iv 1000 Ml (Sodium Chloride 0.9%) (10/25/18 16:16) Ns Iv 1000 Ml (Sodium Chloride 0.9%) (10/25/18 16:30) Lorazepam Injection (Ativan Injection) (10/25/18 16:30) Lorazepam Injection (Ativan Injection) (10/25/18 17:57) Vital Signs/I&O 10/25/18 11:30 Temp 37.3 Pulse 117 Resp 14 B/P (MAP) 112/86 (95) Pulse Ox 97 O2 Delivery Room Air Blood Pressure Mean: 95 Departure Communication (Admissions) 1430 PHONED [facility] call. An attempt was made to determine the treating neurologist for Ms. Cummings was. This was referred to me as . Attempt to reach her at the office revealed that there were no neurologist in the [facility] system this week and that only tele neurology services would be available. Later spoke to [facility] call and was connected with Dr. Blair who was the critical care hospitalist. He expressed personal unhappiness that they had no in-house neurology. He respectfully declined transfer as he thought this would be short changing the patient and her family. Her then returned from a trip to his home to get additional information and we discussed and agreed that we would pursue transfer to [facility]. She has subsequently had 2 additional seizures. I then placed a call to the transfer phone and am awaiting callback relative to bed availability and discussion with neurology. [phone] callback from revealed acceptance for admission. A Dr. Aguirre Impression Primary Impression: seizure disorder with Geoff's paralysis Disposition: XFER SHT-TRM HOSP Condition: Stable/Unchanged Transfer Time Spoke to Accepting Phy: 17:45 Transfer Progress Notes The patient was referred to the attending ribbon inker. After reviewing the information accepted in transfer. Arrangements are being made for EMS transfer Departure-Patient Inst. Referrals: REGINALD WHITLEY MD (PCP/Family) Primary Care Physician ASHLEY CHRISTY MD Oct 25, 2018 12:22
--- NOTE | 2018-10-25 12:35 | NUR ---
Patient responds to name. When asked if she is having any pain she states "just my knee". When asked to lift her arms or legs patient responded "I can't". at bedside, call light within reach, will continue to monitor closely.
[2018-10-25] MEDS ORDERED: LORazepam INJ 2 MG/ML (ATIVAN) VIAL IVP STA ×3 (12:54→17:57)
--- NOTE | 2018-10-25 12:55 | NUR ---
Called to patients room by her . Upon entering patient was found to be have tonic activity. This activity lasted 4 to 5 minutes. Vital signs heart rate elevated to 130 to 140s, oxygen saturation remained in high 90's. 1mg Ativan was administered at this time. Call light within reach, will continue to monitor closely.
[2018-10-25 15:15] LABS: HEMATOCRIT 33 % (35-52); HEMOGLOBIN 10.1 G/DL (11.5-16.0); MEAN CORPUSCULAR HEMOGLOBIN 30 PG (25-34); MEAN CORPUSCULAR HGB CONC 30 G/DL (32-36); MEAN CORPUSCULAR VOLUME 98 FL (80-99); RED CELL DISTRIBUTION WIDTH 14.6 % (10.0-14.5); WHITE BLOOD COUNT 3.5 10^3/uL (4.3-11.0)
[2018-10-25 15:16] LABS: BASOPHILS % (AUTO) 1 % (0-10); EOSINOPHILS # (AUTO) 0.2 10^3/uL (0.0-0.3); EOSINOPHILS % (AUTO) 6 % (0-10); LYMPHOCYTES # (AUTO) 0.6 X 10^3 (1.0-4.0); LYMPHOCYTES % (AUTO) 17 % (12-44); MEAN PLATELET VOLUME 9.7 FL (7.4-10.4); MONOCYTES # (AUTO) 0.4 X 10^3 (0.0-1.0); MONOCYTES % (AUTO) 11 % (0-12); NEUTROPHILS # (AUTO) 2.3 X 10^3 (1.8-7.8); NEUTROPHILS % (AUTO) 65 % (42-75); PLATELET COUNT 207 10^3/uL (130-400)
[2018-10-25 15:33] LABS: ALANINE AMINOTRANSFERASE 33 U/L (0-55); ALBUMIN 3.7 GM/DL (3.2-4.5); ALKALINE PHOSPHATASE 284 U/L (40-136); BILIRUBIN,TOTAL 0.3 MG/DL (0.1-1.0); BUN/CREATININE RATIO 18; CALCIUM 8.9 MG/DL (8.5-10.1); CARBON DIOXIDE 25 MMOL/L (21-32); CHLORIDE 103 MMOL/L (98-107); CREATININE SERUM 0.67 MG/DL (0.60-1.30); GFR ESTIMATED > 60; GLUCOSE 79 MG/DL (70-105); POTASSIUM 3.7 MMOL/L (3.6-5.0); SODIUM 142 MMOL/L (135-145); TOTAL PROTEIN 6.3 GM/DL (6.4-8.2)
[2018-10-25] MEDS ORDERED: NS IV 1000 ML 1,000 ML ONE (16:16)
--- NOTE | 2018-10-25 16:28 | NUR ---
Entered patients room at this time. Patient again is exhibiting tonic activity. Witnessed activity lasted approimately 4 minutes. 1mg of Ativan administered at this time. Vital signs remained stable throughout episode. Call light within reach, will continue to monitor closely.
[2018-10-25] MEDS ORDERED: NS IV 1000 ML 1,000 ML IV SCH (16:30)
[2018-10-25 19:10] VITALS: BP 101/73
== END 2018-10-25 19:10 | disposition short-term general hospital (02) ==
LOC: EDUNIT# 11:27 → ER FS 11:28
DX: G40.909 Epilepsy, unspecified, not intractable, without status epilepticus (principal); G83.84 Todd's paralysis (postepileptic); J44.9 Chronic obstructive pulmonary disease, unspecified; I10 Essential (primary) hypertension; E78.00 Pure hypercholesterolemia, unspecified; I25.10 Atherosclerotic heart disease of native coronary artery without angina pectoris; G20 Parkinson's disease; K21.9 Gastro-esophageal reflux disease without esophagitis; I48.91 Unspecified atrial fibrillation; M06.9 Rheumatoid arthritis, unspecified; F41.9 Anxiety disorder, unspecified; Z85.118 Personal history of other malignant neoplasm of bronchus and lung; Z86.73 Personal history of transient ischemic attack (TIA), and cerebral infarction without residual deficits; Z90.89 Acquired absence of other organs; Z91.040 Latex allergy status; Z88.0 Allergy status to penicillin; Z88.1 Allergy status to other antibiotic agents; Z88.8 Allergy status to other drugs, medicaments and biological substances; Z88.2 Allergy status to sulfonamides; Z79.82 Long term (current) use of aspirin; Z79.52 Long term (current) use of systemic steroids; Z79.01 Long term (current) use of anticoagulants; Z90.49 Acquired absence of other specified parts of digestive tract
CPT/HCPCS: 36415; 51702; 80053; 85025; 96374; 96376

== ENCOUNTER → 2019-01-28 | Outpatient (CLI) | payer MEDICARE, OTHER ==
[2019-01-28 12:21] LABS: INR 1.3 (0.8-1.4); PROTHROMBIN TIME PATIENT 17.1 SEC (12.2-14.7)
[2019-01-28 12:30] LABS: ALANINE AMINOTRANSFERASE 32 U/L (0-55); ALBUMIN 3.5 GM/DL (3.2-4.5); ALKALINE PHOSPHATASE 249 U/L (40-136); BILIRUBIN,TOTAL 0.3 MG/DL (0.1-1.0); BUN/CREATININE RATIO 24; CARBON DIOXIDE 21 MMOL/L (21-32); CHLORIDE 110 MMOL/L (98-107); CREATININE SERUM 0.68 MG/DL (0.60-1.30); GFR ESTIMATED > 60; GLUCOSE 135 MG/DL (70-105); POTASSIUM 4.5 MMOL/L (3.6-5.0); SODIUM 141 MMOL/L (135-145); TOTAL PROTEIN 5.5 GM/DL (6.4-8.2)
== END ==
LOC: LABNPT 10:15
PROVIDERS: ATTEND Orthopaedic Surgery Sports Medicine
DX: I87.331 Chronic venous hypertension (idiopathic) with ulcer and inflammation of right lower extremity (principal); Z79.01 Long term (current) use of anticoagulants
CPT/HCPCS: 80053; 80202; 85610

== ENCOUNTER → 2019-01-30 | Outpatient (CLI) | payer MEDICARE, OTHER ==
[2019-01-30 12:53] LABS: INR 1.4 (0.8-1.4); PROTHROMBIN TIME PATIENT 17.4 SEC (12.2-14.7)
== END ==
LOC: LAB FS 12:02
PROVIDERS: ATTEND Orthopaedic Surgery Sports Medicine
DX: I48.91 Unspecified atrial fibrillation (principal)
CPT/HCPCS: 36415; 85610

== ENCOUNTER → 2019-02-03 | Outpatient (CLI) | payer MEDICARE, OTHER ==
[2019-02-03 18:04] LABS: BASOPHILS % (AUTO) 0 % (0-10); EOSINOPHILS # (AUTO) 0.3 10^3/uL (0.0-0.3); EOSINOPHILS % (AUTO) 5 % (0-10); HEMATOCRIT 31 % (35-52); HEMOGLOBIN 9.2 G/DL (11.5-16.0); LYMPHOCYTES # (AUTO) 0.6 X 10^3 (1.0-4.0); LYMPHOCYTES % (AUTO) 12 % (12-44); MEAN CORPUSCULAR HEMOGLOBIN 28 PG (25-34); MEAN CORPUSCULAR HGB CONC 30 G/DL (32-36); MEAN CORPUSCULAR VOLUME 92 FL (80-99); MONOCYTES # (AUTO) 0.5 X 10^3 (0.0-1.0); MONOCYTES % (AUTO) 11 % (0-12); NEUTROPHILS # (AUTO) 3.4 X 10^3 (1.8-7.8); NEUTROPHILS % (AUTO) 72 % (42-75); PLATELET COUNT 223 10^3/uL (130-400); WHITE BLOOD COUNT 4.7 10^3/uL (4.3-11.0)
[2019-02-03 19:23] LABS: ALANINE AMINOTRANSFERASE 19 U/L (0-55); ALBUMIN 3.3 GM/DL (3.2-4.5); ALKALINE PHOSPHATASE 323 U/L (40-136); BILIRUBIN,TOTAL 0.2 MG/DL (0.1-1.0); BUN/CREATININE RATIO 43; CALCIUM 8.6 MG/DL (8.5-10.1); CARBON DIOXIDE 21 MMOL/L (21-32); CHLORIDE 109 MMOL/L (98-107); CREATININE SERUM 0.72 MG/DL (0.60-1.30); GFR ESTIMATED > 60; POTASSIUM 4.4 MMOL/L (3.6-5.0); SODIUM 145 MMOL/L (135-145); TOTAL PROTEIN 5.7 GM/DL (6.4-8.2); VANCOMYCIN,TROUGH 10.8 UG/ML (10.0-20.0)
[2019-02-03 19:26] LABS: GLUCOSE 129 MG/DL (70-105)
== END ==
LOC: LAB FS 16:42
PROVIDERS: ATTEND Orthopaedic Surgery Sports Medicine
DX: I87.331 Chronic venous hypertension (idiopathic) with ulcer and inflammation of right lower extremity (principal)
CPT/HCPCS: 36415; 80053; 80202; 85025

== ENCOUNTER 2019-02-06 11:32 | Emergency (ER) | payer MEDICARE, OTHER ==
[~2019-02-06] VITALS: Ht 147.3 cm; Wt 43.2 kg
[2019-02-06 11:32] VITALS: BP 105/72
[2019-02-06] MEDS ORDERED: NS IV 1000 ML 1,000 ML IV SCH (11:37)
[2019-02-06] MEDS ORDERED: ACETAMINOPHEN 650 MG SUPP (TYLENOL) ONE (11:42)
--- NOTE | 2019-02-06 11:43 | ED Dyspnea ---
General Stated Complaint: SOB Source of Information: EMS, Family () History of Present Illness Date Seen by Provider: Feb 06, 2019 Time Seen by Provider: 11:32 Initial Comments The patient is a 68-year-old female brought in by EMS for evaluation of shortness of breath. When EMS arrived on scene and got her loaded into the ambulance she had a seizure lasting approximately 3 minutes long. It was today in the field as to whether they should intubate her. Her breath sounds were noted to be full of rhonchi and crackles. After the seizure stopped the patient's breathing did improve somewhat and she was placed on oxygen and brou ght to the emergency department. She was not intubated. Upon arrival the patient is placed on oxygen and given a breathing treatment and her saturation improved to 100% relatively quickly. The patient's is present and states that the patient is a DO NOT INTUBATE/DO NOT RESUSCITATE. He states that she had a recent knee surgery on the right to remove hardware at [facility]. The patient's states that if she needs to be admitted they would prefer [facility]. The patient's reports that she has a history of pneumonia and believes that she has a pneumonia at this time. She has a port through which she has been getting vancomycin for a right knee infection. Additionally she is anticoagulated with Coumadin and has a history of atrial fibrillation. Timing/Duration: Other (3 days) Severity: Severe Associated Symptoms: Cough, Fever Allergies and Home Medications Allergies Coded Allergies: Latex, Natural Rubber (Verified Allergy, Unknown, 08/24/16) Penicillins (Verified Allergy, Unknown, HIVES, 07/13/18) butorphanol (Verified Allergy, Unknown, Patient takes oxycodone/APAP at home, 09/01/16) cefotaxime (Verified Allergy, Unknown, 08/24/16) diazepam (Verified Allergy, Unknown, 08/24/16) doxycycline (Verified Allergy, Unknown, 08/24/16) levofloxacin (Verified Allergy, Unknown, 08/24/16) sulfamethoxazole (Verified Allergy, Unknown, 08/24/16) trimethoprim (Verified Allergy, Unknown, 08/24/16) Home Medications Acetaminophen 500 Mg Tablet, 1,000 MG PO Q8H PRN for PAIN-MILD, (Reported) Albuterol Sulfate 2.5 Mg/3 Ml Vial.neb, 2.5 MG NEB Q6H PRN for SHORTNESS OF BREATH, (Reported) Amiodarone HCl 200 Mg Tablet, 200 MG PO BID, (Reported) Aspirin 81 Mg Tablet.dr, 81 MG PO DAILY, (Reported) Calcium Carbonate 300 Mg Tab.chew, 750 MG PO TID, (Reported) Cholecalciferol (Vitamin D3) 1,000 Unit Capsule, 1,000 UNIT PO DAILY, (Reported) Digoxin 125 Mcg Tablet, 125 MCG PO DAILY, (Reported) Fluticasone/Vilanterol 1 Each Blst.w.dev, 1 PUFF IH DAILY, (Reported) Folic Acid 0.8 Mg Tablet, 0.8 MG PO DAILY, (Reported) Furosemide 40 Mg Tablet, 40 MG PO DAILY, (Reported) Hydrocodone/Acetaminophen 1 Each Tablet, 1 TAB PO Q4H PRN for PAIN-MODERATE, (Reported) Hydrocodone/Acetaminophen 1 Each Tablet, 1 TAB PO Q4H PRN for PAIN-MODERATE, (Reported) Hydrocortisone Acetate 25 Mg Supp.rect, 25 MG RC Q8H PRN for ARTHRITIS, (Report ed) Ipratropium/Albuterol Sulfate 3 Ml Ampul.neb, 3 ML NEB Q6H PRN for SHORTNESS OF BREATH, (Reported) Lacosamide 150 Mg Tablet, 150 MG PO DAILY, (Reported) Lacosamide 200 Mg Tablet, 200 MG PO HS, (Reported) Levetiracetam 1,000 Mg Tablet, 1,000 MG PO BID, (Reported) Levetiracetam 250 Mg Tablet, 250 MG PO BID, (Reported) Lisinopril 2.5 Mg Tablet, 2.5 MG PO DAILY, (Reported) NOTIFY PHYSICIAN IF BP<80/50 OR >180/110 OR PULSE <50 OR >110 Lorazepam 0.5 Mg Tablet, 0.5 MG PO Q8H PRN for ANXIETY, (Reported) Lovastatin 40 Mg Tablet, 40 MG PO DAILY, (Reported) Metoprolol Tartrate 50 Mg Tablet, 50 MG PO BID, (Reported) NOTIFY PHYSICIAN IF BP IS <80/50 OR >180/110 OR PULSE <50 OR >110 Mirtazapine 15 Mg Tablet, 15 MG PO HS, (Reported) Montelukast Sodium 10 Mg Tablet, 10 MG PO DAILY, (Reported) Olanzapine 2.5 Mg Tablet, 2.5 MG PO DAILY, (Reported) Piperacillin Sodium/Tazobactam 3.375 Gm Vial, 3.375 GM IV Q6H, (Reported) 7 DAY SUPPLY START DATE 07-11-18 END DATE 07-17-18 Ranitidine HCl 150 Mg Capsule, 150 MG PO BID, (Reported) Sennosides/Docusate Sodium 1 Each Tablet, 1 TAB PO BID, (Reported) Warfarin Sodium 6 Mg Tablet, 6 MG PO DAILY, (Reported) Patient Home Medication List Home Medication List Reviewed: Yes Review of Systems Review of Systems Constitutional: fever EENTM: no symptoms reported Respiratory: cough, short of breath Gastrointestinal: no symptoms reported Genitourinary: no symptoms reported Skin: no symptoms reported Psychiatric/Neurological: No Symptoms Reported, Seizure Endocrine: No Symptoms Reported Hematologic/Lymphatic: No Symptoms Reported All Other Systems Reviewed Negative Unless Noted: No (pt currently post-ictal (information collected from )) Past Nrfqcai-Jwnsfp-Iwfqiu Hx Past Med/Social Hx: Reviewed Nursing Past Med/Soc Hx Patient Social History Type Used: Cigarettes 2nd Hand Smoke Exposure: No Recent Foreign Travel: Yes Recent Hopitalizations: Yes (Discharged from [facility] 10/24/18) Immunizations Up To Date Tetanus Booster (TDap): Unknown Date of Pneumonia Vaccine: May 24, 2016 Date of Influenza Vaccine: Nov 22, 2016 Seasonal Allergies Seasonal Allergies: No Past Medical History Surgeries: Yes Adenoidectomy, Appendectomy, Cardiac, Gallbladder, Orthopedic, Tonsillectomy, Valve Replacement Respiratory: Yes (02 2L; LUNG CANCER- PER OLD RECORDS, TOBACCOISM) COPD Currently Using CPAP: No Currently Using BIPAP: No Cardiac: Yes Atrial Fibrillation, Coronary Artery Disease, High Cholesterol, Hypertension, Valvular Heart Disease Neurological: Yes Parkinson's Disease, Seizure Disorder, TIA 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 Disorders: No Female 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 Disorders: Denies 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 Sexually Transmitted Disease: No HIV/AIDS: No Genitourinary: No Gastrointestinal: Yes Gastroesophageal Reflux, Chronic Constipation Musculoskeletal: Yes (BILATERAL LEG FRACTURES 04/2018--NON AMBULATORY SINCE THEN) Osteoporosis, Rheumatoid Arthritis, Fractures Endocrine: No HEENT: Yes (NASAL POLYPS) Loss of Vision: Bilateral Hearing Impairment: Denies Cancer: Yes (LUNG CANCER--SQUAMOUS CELL, PER OLD RECORDS) Lung Psychosocial: Yes Sleep Difficulties, Anxiety Integumentary: No Blood Disorders: No Adverse Reaction/Blood Tranf: No Physical Exam Vital Signs Vital Signs - First Documented 02/06/19 11:32 Temp 38.3 Pulse 129 Resp 23 B/P (MAP) 158/107 (124) Pulse Ox 94 O2 Delivery Room Air Capillary Refill : Height, Weight, BMI Height: 5'0.00" Weight: 133lbs. 9.0oz. [id number]; 25.00 BMI Method:Stated General Appearance: WD/WN, Moderate Distress (moderate respiratory distress upon arrival - quickly improves (pt is dnr/dni)) HEENT: PERRL/EOMI, TMs Normal Respiratory: Crackles, Respiratory Distress (moderate), Rhonci Cardiovascular: Irregularly Irregular, Tachycardia Gastrointestinal: Non Tender, Soft Extremity: Normal Capillary Refill, Non Tender Neurologic/Psychiatric: Other (post-ictal) Skin: Normal Color, Warm/Dry Focused Exam Lactate Level 02/06/19 11:50: Lactic Acid Level 2.06*H Lactic Acid Level Laboratory Tests Test 02/06/19 11:50 Lactic Acid Level 2.06 MMOL/L (0.50-2.00) *H Progress/Results/Core Measures Results/Orders Lab Results Laboratory Tests Test 02/06/19 11:50 02/06/19 12:15 Range/Units White Blood Count 8.7 4.3-11.0 10^3/uL Red Blood Count 3.79 L 4.35-5.85 10^6/uL Hemoglobin 10.4 L 11.5-16.0 G/DL Hematocrit 34 L 35-52 % Mean Corpuscular Volume 91 80-99 FL Mean Corpuscular Hemoglobin 27 25-34 PG Mean Corpuscular Hemoglobin Concent 30 L 32-36 G/DL Red Cell Distribution Width 17.1 H 10.0-14.5 % Platelet Count 274 130-400 10^3/uL Mean Platelet Volume 10.5 H 7.4-10.4 FL Neutrophils (%) (Auto) 72 42-75 % Lymphocytes (%) (Auto) 17 12-44 % Monocytes (%) (Auto) 9 0-12 % Eosinophils (%) (Auto) 1 0-10 % Basophils (%) (Auto) 0 0-10 % Neutrophils # (Auto) 6.3 1.8-7.8 X 10^3 Lymphocytes # (Auto) 1.5 1.0-4.0 X 10^3 Monocytes # (Auto) 0.8 0.0-1.0 X 10^3 Eosinophils # (Auto) 0.1 0.0-0.3 10^3/uL Basophils # (Auto) 0.0 0.0-0.1 10^3/uL Prothrombin Time 22.1 H 12.2-14.7 SEC INR Comment 1.8 H 0.8-1.4 Activated Partial Thromboplast Time 54 H 24-35 SEC Sodium Level 146 H 135-145 MMOL/L Potassium Level 4.0 3.6-5.0 MMOL/L Chloride Level 108 H 98-107 MMOL/L Carbon Dioxide Level 24 21-32 MMOL/L Anion Gap 14 5-14 MMOL/L Blood Urea Nitrogen 21 H 7-18 MG/DL Creatinine 0.64 0.60-1.30 MG/DL Estimat Glomerular Filtration Rate > 60 BUN/Creatinine Ratio 33 Glucose Level 123 H 70-105 MG/DL Lactic Acid Level 2.06 *H 0.50-2.00 MMOL/L Calcium Level 9.3 8.5-10.1 MG/DL Corrected Calcium 9.7 8.5-10.1 MG/DL Total Bilirubin 0.3 0.1-1.0 MG/DL Aspartate Amino Transf (AST/SGOT) 28 5-34 U/L Alanine Aminotransferase (ALT/SGPT) 18 0-55 U/L Alkaline Phosphatase 301 H 40-136 U/L Troponin I < 0.30 <0.30 NG/ML Pro-B-Type Natriuretic Peptide 7456.0 H <75.0 PG/ML Total Protein 7.2 6.4-8.2 GM/DL Albumin 3.5 3.2-4.5 GM/DL Urine Color YELLOW Urine Clarity SLT CLOUDY Urine pH 6.5 5-9 Urine Specific [place] 1.020 1.016-1.022 Urine Protein 2+ H NEGATIVE Urine Glucose (UA) NEGATIVE NEGATIVE Urine Ketones NEGATIVE NEGATIVE Urine Nitrite POSITIVE H NEGATIVE Urine Bilirubin NEGATIVE NEGATIVE Urine Urobilinogen 0.2 < = 1.0 MG/DL Urine Leukocyte Esterase NEGATIVE NEGATIVE Urine RBC (Auto) TRACE H NEGATIVE Urine RBC 0-2 /HPF Urine WBC 2-5 /HPF Urine Squamous Epithelial Cells NONE /HPF Urine Crystals NONE /LPF Urine Bacteria MODERATE H /HPF Urine Casts NONE /LPF Urine Mucus NONE /LPF Urine Culture Indicated NO Micro Results Microbiology 02/06/19 Influenza Types A,B Antigen (SHAE) - Final, Complete My Orders Orders - KENDY APARICIO DO Cbc With Automated Diff (02/06/19 11:37) Comprehensive Metabolic Panel (02/06/19 11:37) Blood Culture (02/06/19 11:37) Urinalysis (02/06/19 11:37) Urine Culture (02/06/19 11:37) Protime With Inr (02/06/19 11:37) Partial Thromboplastin Time (02/06/19 11:37) Chest 1 View Ap/Pa Only (02/06/19 11:37) Ed Iv/Invasive Line Start (02/06/19 11:37) Vital Signs Adult Sepsis Patie Q15M (02/06/19 11:37) O2 (02/06/19 11:37) Lactic Acid Analyzer (02/06/19 11:37) Influenza A And B Antigens (02/06/19 11:37) Ns Iv 1000 Ml (Sodium Chloride 0.9%) (02/06/19 11:37) Vancomycin Injection (Vancomycin Injecti (02/06/19 11:45) Lorazepam Injection (Ativan Injection) (02/06/19 11:45) Troponin I Fs (02/06/19 11:44) Probnp Fs (02/06/19 11:44) Ekg Tracing (02/06/19 11:44) Continuous Ekg Monitoring (02/06/19 11:44) Acetaminophen Suppository (Tylenol Suppo (02/06/19 11:42) Heparin (Central Iv Flush) (Heparin (Jaleel (02/06/19 11:47) Perez Cath (02/06/19 12:13) Acetaminophen Suppository (Tylenol Suppo (02/06/19 12:15) Furosemide Injection (Lasix Injection) (02/06/19 12:45) Medications Given in ED Current Medications Medications Dose Ordered Sig/Renuka Route Start Time Stop Time Status Last Admin Dose Admin Acetaminophen 650 mg STK-MED ONCE .ROUTE 02/06/19 11:42 02/06/19 11:46 DC 02/06/19 12:00 650 MG Furosemide 40 mg ONCE ONCE IVP 02/06/19 12:45 02/06/19 12:46 DC 02/06/19 13:09 40 MG Lorazepam 1 mg ONCE ONCE IVP 02/06/19 11:45 02/06/19 11:46 DC 02/06/19 11:27 1 MG Vancomycin HCl 1000 mg/Sodium Chloride 250 ml @ 250 mls/hr ONCE ONCE IV 02/06/19 11:45 02/06/19 12:44 DC 02/06/19 12:00 250 MLS/HR Vital Signs/I&O 02/06/19 11:32 Temp 38.3 Pulse 129 Resp 23 B/P (MAP) 158/107 (124) Pulse Ox 94 O2 Delivery Room Air Progress Progress Note : Progress Note @1230 - Pt's preference is to be transferred to [facility]. However the on-call hospitalist, Dr. Roldan, feels that the patient will need consultation from cardiology and pulmonology and those are not available. 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 @1316 - The patient's next preference is [facility]. Transfer line called, no answer, voicemail left. @1352 - Dr. Phil Downey (hospitalist) at [facility] accepts the patient transfer at this time. Initial ECG Impression Date: Feb 06, 2019 Initial ECG Impression Time: 11:39 Comment @1139 - Atrial fibrillation with rapid ventricular response, normal axis, no acute ischemic findings noted, no STEMI, reviewed and interpreted by myself Departure Impression Primary Impression: Acute CHF (congestive heart failure) Additional Impressions: HCAP (healthcare-associated pneumonia) Sepsis Seizure Acute UTI Disposition: XF [facility] Condition: Improved Transfer Transfer Reason: Exceeds level of care Time Spoke to Accepting Phy: 13:[address] Phil Downey at [facility] accepts the transfer at this time. Transfer Time: 14:00 Transfer Facility: [facility] Method of Transfer: EMS Departure-Patient Inst. Referrals: REGINALD WHITLEY MD (PCP/Family) Primary Care Physician KENDY APARICIO DO Feb 06, 2019 11:43
[2019-02-06] MEDS ORDERED: LORazepam INJ 2 MG/ML (ATIVAN) VIAL IVP ONE (11:45)
[2019-02-06] MEDS ORDERED: VANCOMYCIN INJECTION 1,000 MG in NS (IVPB) 250 ML IV ONE (11:45)
[2019-02-06] MEDS ORDERED: HEParin (CENTRAL IV FLUSH) 500 UNIT/5 ML SYR ONE (11:47)
[2019-02-06 11:54] LABS: HEMATOCRIT 34 % (35-52); HEMOGLOBIN 10.4 G/DL (11.5-16.0); MEAN CORPUSCULAR HEMOGLOBIN 27 PG (25-34); MEAN CORPUSCULAR VOLUME 91 FL (80-99); WHITE BLOOD COUNT 8.7 10^3/uL (4.3-11.0)
[2019-02-06 11:55] LABS: BASOPHILS % (AUTO) 0 % (0-10); EOSINOPHILS % (AUTO) 1 % (0-10); LYMPHOCYTES # (AUTO) 1.5 X 10^3 (1.0-4.0); LYMPHOCYTES % (AUTO) 17 % (12-44); MEAN CORPUSCULAR HGB CONC 30 G/DL (32-36); MEAN PLATELET VOLUME 10.5 FL (7.4-10.4); MONOCYTES % (AUTO) 9 % (0-12); NEUTROPHILS # (AUTO) 6.3 X 10^3 (1.8-7.8); NEUTROPHILS % (AUTO) 72 % (42-75); PLATELET COUNT 274 10^3/uL (130-400); RED CELL DISTRIBUTION WIDTH 17.1 % (10.0-14.5)
[2019-02-06 11:56] LABS: EOSINOPHILS # (AUTO) 0.1 10^3/uL (0.0-0.3); MONOCYTES # (AUTO) 0.8 X 10^3 (0.0-1.0)
--- NOTE | 2019-02-06 12:11 | Diagnostic Imaging Report ---
INDICATION: Shortness of breath, fever. TECHNIQUE: Single view chest, 12:00 p.m. CORRELATION STUDY: 07/13/2018. FINDINGS: Post-sternotomy and cardiac valve surgical changes are again demonstrated. Heart size is largely obscured but appears generally stable. However, there has been development of rather significant perihilar opacities, likely edema. Disproportionate opacification throughout the left lung compared to the right lung. Multiple overlying monitor leads. Some motion artifact does obscure detail. IMPRESSION: 1. Development of what appears to be a prominent severity pulmonary vascular congestion and perihilar and asymmetric areas of pulmonary edema. Follow-up imaging recommended. Dictated by: Dictated on workstation # [id number]
[2019-02-06] MEDS ORDERED: ACETAMINOPHEN 650 MG SUPP (TYLENOL) PR ONE (12:15)
[2019-02-06 12:18] LABS: INR 1.8 (0.8-1.4); PROTHROMBIN TIME PATIENT 22.1 SEC (12.2-14.7)
[2019-02-06 12:21] LABS: BUN/CREATININE RATIO 33; CALCIUM 9.3 MG/DL (8.5-10.1); CARBON DIOXIDE 24 MMOL/L (21-32); CHLORIDE 108 MMOL/L (98-107); CREATININE SERUM 0.64 MG/DL (0.60-1.30); GFR ESTIMATED > 60; GLUCOSE 123 MG/DL (70-105); SODIUM 146 MMOL/L (135-145)
[2019-02-06 12:22] LABS: ALANINE AMINOTRANSFERASE 18 U/L (0-55); ALBUMIN 3.5 GM/DL (3.2-4.5); ALKALINE PHOSPHATASE 301 U/L (40-136); BILIRUBIN,TOTAL 0.3 MG/DL (0.1-1.0); TOTAL PROTEIN 7.2 GM/DL (6.4-8.2)
[2019-02-06 12:33] LABS: CLARITY,URINE SLT CLOUDY; COLOR,URINE YELLOW; PH,URINE 6.5 (5-9)
[2019-02-06 12:34] LABS: BACTERIA,URINE MODERATE /HPF; BILIRUBIN,URINE NEGATIVE (NEGATIVE); GLUCOSE, URINE (UA) NEGATIVE (NEGATIVE); KETONES,URINE NEGATIVE (NEGATIVE); LEUKOCYTE ESTERASE ,URINE NEGATIVE (NEGATIVE); NITRITE,URINE POSITIVE (NEGATIVE); PROTEIN,URINE 2+ (NEGATIVE); RBC,URINE 0-2 /HPF
[2019-02-06] MEDS ORDERED: FUROSEMIDE 40 MG/4 ML INJ (LASIX) IVP ONE (12:45)
[2019-02-06] MEDS ORDERED: morphine INJ 10 MG/ML 1ML (SYR OR VIAL) IVP STA (14:00)
--- NOTE | 2019-02-09 13:15 | NUR ---
Called to [facility] [place] to notify of patient's transfer was actually to [facility] not [facility]. Microbiology will do f/u in patient is still inpt in order to send this report to them.
== END 2019-02-06 16:05 | disposition short-term general hospital (02) ==
LOC: EDUNIT# 11:32 → ER FS 11:33
DX: A41.9 Sepsis, unspecified organism (principal); R65.20 Severe sepsis without septic shock; I11.0 Hypertensive heart disease with heart failure; I50.9 Heart failure, unspecified; J18.9 Pneumonia, unspecified organism; G40.909 Epilepsy, unspecified, not intractable, without status epilepticus; N39.0 Urinary tract infection, site not specified; J44.0 Chronic obstructive pulmonary disease with (acute) lower respiratory infection; E78.00 Pure hypercholesterolemia, unspecified; I25.10 Atherosclerotic heart disease of native coronary artery without angina pectoris; I48.91 Unspecified atrial fibrillation; F41.9 Anxiety disorder, unspecified; G20 Parkinson's disease; K21.9 Gastro-esophageal reflux disease without esophagitis; M06.9 Rheumatoid arthritis, unspecified; Z86.73 Personal history of transient ischemic attack (TIA), and cerebral infarction without residual deficits; Z85.118 Personal history of other malignant neoplasm of bronchus and lung; Z91.040 Latex allergy status; Z88.0 Allergy status to penicillin; Z88.1 Allergy status to other antibiotic agents; Z88.2 Allergy status to sulfonamides; Z88.8 Allergy status to other drugs, medicaments and biological substances; Z79.82 Long term (current) use of aspirin; Z79.51 Long term (current) use of inhaled steroids; Z79.01 Long term (current) use of anticoagulants; Z90.89 Acquired absence of other organs; Z90.49 Acquired absence of other specified parts of digestive tract
CPT/HCPCS: 36415; 51702; 71045; 80053; 81000; 83605; 83880; 84484; 85025; 85610; 85730; 87040; 87077; 87088; 87186; 87804; 96361; 96365; 96375